=== PATIENT | male | born 1955 | race Two or more races ===

== ENCOUNTER 2024-05-25 15:10 | Inpatient (IN) | payer MEDICARE, MEDICAID ==
[~2024-05-25] VITALS: Ht 182.9 cm; Wt 129.3 kg
[2024-05-25 16:08] LABS: Urine Amorphous Crystal FEW /hpf (None Seen); Urine Bacteria FEW /hpf (None Seen); Urine Blood 3+ /uL (Negative); Urine Clarity Turbid (Clear); Urine Color Colorless (Yellow); Urine Protein, UAD 1+ (Negative); Urine Specific Gravity 1.015 (1.001-1.035); Urine Urobilinogen Normal (Negative); Urine WBC 18 /hpf (0 - 3); Urine pH 7.5 (5.0-9.0)
--- NOTE | 2024-05-25 17:22 | DVH ---
Exam: CT CT AB PEL WO CON-NO ORAL OR IV History: bladder mass Comparison Study: None Technique: Multidetector spiral CT of the abdomen and pelvis was performed from lung bases to pubic symphysis. Imaging was performed without IV contrast. Axial, coronal and sagittal multiplanar reform ats were obtained from the axial data set by the technologist. Radiation dose : Abdomen/Pelvis: CTDIvol 26 mGy, DLP 1610.71 mGy*cm. Findings: Evaluation of solid organs is limited due to lack of intravenous contrast use. Lung Bases: No acute or significant lung base finding. Normal heart size. No pleural or pericardial effusion. Liver: The liver is normal in size. No focal lesions. Gallbladder and biliary Tree: Gallbladder is surgically absent. Spleen: Unremarkable Pancreas: The pancreas is grossly normal in appearance. Adrenal Glands: Unremarkable Kidneys: Bilateral renal cysts. No hydronephrosis or nephrolithiasis. Bladder: Bladder is decompressed with a Jeong catheter and cannot be adequately assessed. Bowel: The stomach is grossly normal in appearance. Small bowel and colon are normal in caliber and d istribution. Normal appendix is visualized in the right lower quadrant without findings of appendici tis. Ascites: Absent Lymphadenopathy: No mesenteric, retroperitoneal or periportal lymphadenopathy. Abdominal wall and Mesentery: Unremarkable. Vasculature: The visualized abdominal aorta is normal in size and caliber. Evaluation of abdominal a nd pelvic vessels is limited due to lack of intravenous contrast. Pelvic Organs: There is a mass in the left pelvis measuring up to 52 by 59 mm. Musculoskeletal: Postsurgical and degenerative changes. IMPRESSION: 1. Left pelvic mass incompletely evaluated on this noncontrast exam. History states bladder mass, cou ld potentially represent an exophytic bladder mass. Could also be arising from the prostate or semin al vesicles. This could be further evaluated with CT or MRI of the pelvis with contrast. Bilateral re nal cysts. Radiation optimization: All CT scans at this facility use at least one of these dose optimization barbara hniques: Automated exposure control mA and/or kV adjustment per patient size (includes targeted exams where dose is matched to clinical indication) or iterative reconstruction. HS:Y
[2024-05-25] MEDS: cefTRIAXone 1GM/50ML D5W 50 ML IV ONE (17:53)
[2024-05-25 18:29] LABS: Basophils # (auto) 0.1 10 ^3/uL (0-0.2); Basophils % (auto) 0.6 % (0.0-2.0); Eosinophils # (auto) 0.2 10 ^3/uL (0-0.8); Eosinophils % (auto) 2.7 % (0.0-7.0); Hematocrit 46.4 % (41.0-53.0); Hemoglobin 15.4 g/dL (13.5-17.5); Lymphocytes # (auto) 2.4 10 ^3/uL (0.4-5.4); Mean Corpuscular Hemoglobin 30.1 pg (28.0-32.0); Mean Corpuscular Hgb Conc. 33.3 g/dL (32.0-36.0); Mean Corpuscular Volume 90.3 fL (80.0-100.0); Monocytes # (auto) 0.7 10 ^3/uL (0-1.3); Neutrophils # (auto) 5.8 10 ^3/uL (1.6-8.6); Neutrophils % (auto) 62.7 % (37.0-80.0); Nucleated Red Blood Cells % 0.1 %; Platelet Count (auto) 289 10^3/uL (140-450); Red Blood Cells 5.14 10^6/uL (4.5-5.90); Red Cell Distribution Width 13.9 % (11.8-14.3); White Blood Cell 9.3 10^3/uL (4.4-10.8)
[2024-05-25 18:50] LABS: Alanine Aminotransferase 29 U/L (7-40); Albumin 4.1 g/dL (3.2-4.8); Alkaline Phosphatase 339 U/L (46-116); Anion Gap 8 (5-15); Aspartate Aminotransferase 24 U/L (13-40); Blood Urea Nitrogen 17 mg/dL (9-23); Calcium 9.4 mg/dL (8.7-10.4); Carbon Dioxide 23 mmol/L (20-31); Chloride 108 mmol/L (98-107); Glucose 103 mg/dL (74-106); Sodium 139 mmol/L (136-145)
[2024-05-25 18:51] LABS: Bilirubin, Total 0.5 mg/dL (0.2-1.0); Total Protein 7.8 g/dL (5.7-8.2)
--- NOTE | 2024-05-25 20:54 | ED.PDOC ---
General HPI Comments HPI: Poor Historian. 69-year-old male presents to the emergency department because he has no medical insurance and no PCP. Patient says he was admitted and discharged on May 20 from an outside facility where he was diagnosed with the following CT scan report: Large lobulated mass in the left posterior pelvis contiguous with the posterior aspect of the prostate gland displacing the rectum to the right side. This could be exophytic prostate neoplasm versus rectal neoplasm with infiltration. They recommended urology and GI consultation further workup and biopsy. Patient states he has no access to a doctor. He is here seeking an evaluation by consulting. Patient has an indwelling Jeong catheter with normal urine color. Past Medcial History: Obstructive uropathy, COPD Past Surgical History: Knee surgery, gallbladder, brain surgery, lumbar surgery REVIEW OF SYSTEMS: CONSTITUTIONAL: Denies acute: fever, diaphoresis, chills, generalized weakness. HEAD: Denies acute: headache, photophobia Eyes: Denies acute: Double vision, vision loss, eye pain, eye discharge. EARS: Denies acute: tinnitus, hearing loss, ear discharge, ear pain, THROAT: Denies acute: sore throat, swelling, difficulty swallowing , pain with swallowing, change in voice. NECK: Denies acute: neck pain, neck swelling, stiff neck. HEART: Denies acute : chest pain, palpitations, LUNGS: Denies acute: SOB, wheezing, cough, hemoptysis ABDOMEN: Denies acute: abdominal pain, Nausea, Vomiting, diarrhea, melena , hematemesis, hematochezia SKIN: Denies acute: rash, redness, lesions, itchiness. EXTREMITIES: Denies acute: calf pain, numbness, tingling, weakness, denies pain in extremity. Denies acute: Low back pain. Neuro: Denies acute: focal neurological deficit, motor or sensory focal neurological deficit, tremors, seizure like activity, confusion, dizziness, change in mental status, loss of bowel or bladder function, cauda equina like symptoms. : Denies acute: hematuria, flank pain, increase in urinary frequency. PSYCH: Denies acute: hallucination, suicidal ideation, homicidal ideation. PHYSICAL EXAM: General: no acute distress, awake and alert. Head: normocephalic, atraumatic. Neck: supple, trachea is midline, no swelling. Throat: Normal phonation. Eyes:, no erythema, no purulent discharge, no proptosis, no icterus. Heart: regular rate, regular rhythm, no significant murmur appreciated. Lungs: no apparent respiratory distress, Able to speak in full sentences. No wheezing, no rhonchi, no crackles. No stridors Clear to auscultation bilaterally. Abdomen: non tender to palpation, non distended, soft, no guarding, no rebound, + bowel sounds. Indwelling Jeong catheter with normal urine color. Neuro: Awake, Alert, oriented to name, self, situation, follows commands GCS=15. Speech is normal. Skin: no petechia, no purpura, no cyanosis, non-pale, not jaundice. Lower extremities: --no - Pitting edema no deformity, no focal swelling, no calf TTP. Makes eye contact. moves all four extremities. Face: no apparent facial droop. No CVA tenderness to percussion bilaterally. Ambulating in the ED independently. Ears: Normal appearing TM b/l, Stroke: finger to nose cerebellar testing is intact. No pronator drift. Symmetrical traffic coordinator muscle strength b/l PERRLA, EOM-I CN 2-12 are grossly intact, Pedal pulses are palpable. No nystagmus. No nuchal rigidity, Kernig's sign, Brudzinski's sign, no meningeal signs. Chief Complaint: Urinary Time Seen by MD: 15:17 Primary Care Provider: none Reviewed notes: Nurses Notes, Allergies Allergies: Coded Allergies: Codeine (Verified Allergy, Unknown, 05/25/24) Information Source: Patient Mode of Arrival: Ambulatory Was a procedure done? Was a procedure done?: No Differential Diagnosis Kidney stone (Female): N/A Urinary Problem (Male): Bladder Outlet, Bladder Obstruction, Epididymitis, Prostatitis, Plelonephritis, Post op Complications, Renal Failure, Urethritis, Urinary Retention, Urolithiasis, UTI X-Ray, Labs, Meds, VS Vital Signs Date Time Temp Pulse Resp B/P (MAP) Pulse Ox O2 Delivery O2 Flow Rate FiO2 05/25/24 18:02 98.2 87 20 100/89 (93) 99 98.2 05/25/24 15:30 98.0 88 19 108/87 (94) 98 Lab Test 05/25/24 20:18 05/25/24 18:20 05/25/24 18:14 11/18/24 16:00 Range/Units Troponin I High Sensitivity 5 7 </=54 ng/L Lactic Acid Level 1.7 0.4-2.0 mmol/L White Blood Count 9.3 4.4-10.8 10^3/uL Red Blood Count 5.14 4.5-5.90 10^6/uL Hemoglobin 15.4 13.5-17.5 g/dL Hematocrit 46.4 41.0-53.0 % Mean Corpuscular Volume 90.3 80.0-100.0 fL Mean Corpuscular Hemoglobin 30.1 28.0-32.0 pg Mean Corpuscular Hemoglobin Concent 33.3 32.0-36.0 g/dL Red Cell Distribution Width 13.9 11.8-14.3 % Platelet Count 289 140-450 10^3/uL Mean Platelet Volume 6.5 L 6.9-10.8 fL Neutrophils (%) (Auto) 62.7 37.0-80.0 % Lymphocytes (%) (Auto) 26.0 10.0-50.0 % Monocytes (%) (Auto) 8.0 0.0-12.0 % Eosinophils (%) (Auto) 2.7 0.0-7.0 % Basophils (%) (Auto) 0.6 0.0-2.0 % Neutrophils # (Auto) 5.8 1.6-8.6 10 ^3/uL Lymphocytes # (Auto) 2.4 0.4-5.4 10 ^3/uL Monocytes # (Auto) 0.7 0-1.3 10 ^3/uL Eosinophils # (Auto) 0.2 0-0.8 10 ^3/uL Basophils # (Auto) 0.1 0-0.2 10 ^3/uL Nucleated Red Blood Cells 0.1 % Sodium Level 139 136-145 mmol/L Potassium Level 4.0 3.5-5.1 mmol/L Chloride Level 108 H 98-107 mmol/L Carbon Dioxide Level 23 20-31 mmol/L Anion Gap 8 5-15 Blood Urea Nitrogen 17 9-23 mg/dL Creatinine 1.00 0.700-1.30 mg/dL Glomerular Filtration Rate Calc 82 >90 mL/min BUN/Creatinine Ratio 17.0 10.0-20.0 Serum Glucose 103 74-106 mg/dL Calcium Level 9.4 8.7-10.4 mg/dL Total Bilirubin 0.5 0.2-1.0 mg/dL Aspartate Amino Transferase (AST) 24 13-40 U/L Alanine Aminotransferase (ALT) 29 7-40 U/L Alkaline Phosphatase 339 H 46-116 U/L Total Protein 7.8 5.7-8.2 g/dL Albumin 4.1 3.2-4.8 g/dL Urine Color Colorless Yellow Urine Clarity Turbid H Clear Urine pH 7.5 5.0-9.0 Urine Specific [place] 1.015 1.001-1.035 Urine Protein 1+ H Negative Urine Ketones Negative Negative Urine Blood 3+ H Negative /uL Urine Nitrite 2+ H Negative Urine Bilirubin Negative Negative Urine Urobilinogen Normal Negative mg/dL Urine Leukocyte Esterase 2+ Negative /uL Urine RBC 595 0 - 3 /hpf Urine WBC 18 0 - 3 /hpf Urine Squamous Epithelial Cells None seen <5 /hpf Urine Amorphous Crystals Few None Seen /hpf Urine Bacteria Few H None Seen /hpf Urine Glucose Normal Normal mg/dL Current Medications Medications (Trade) Dose Ordered Sig/Hung Route Start Time Stop Time Status Last Admin Ceftriaxone Sodium 50 ml @ 100 mls/hr ONCE ONCE IV 05/25/24 17:30 05/25/24 17:59 DC 05/25/24 17:53 [place] [id number] Ph: [phone] DIAGNOSTIC IMAGING Diagnostic Imaging Report : [id number] Signed PATIENT: VENITA SCOTTCCT: [id number] UNIT: [id number] : 1955 LOC: ER ROOM / BED: / AGE / SEX: 69 / M ADM STATUS: REG ER SERVICE [id number] ORDERING PHYSICIAN: ARI TURNER DO PROCEDURE(s): ABPL - CT AB PEL WO CON-NO ORAL OR IV REASON: bladder mass ORDER NUMBER(s): [id number], ACCESSION NUMBER(s): [id number] Exam: CT CT AB PEL WO CON-NO ORAL OR IV History: bladder mass Comparison Study: None Technique: Multidetector spiral CT of the abdomen and pelvis was performed from lung bases to pubic symphysis. Imaging was performed without IV contrast. Axial, coronal and sagittal multiplanar reformats were obtained from the axial data set by the technologist. Radiation dose : Abdomen/Pelvis: CTDIvol 26 mGy, DLP 1610.71 mGy*cm. Findings: Evaluation of solid organs is limited due to lack of intravenous contrast use. Lung Bases: No acute or significant lung base finding. Normal heart size. No pleural or pericardial effusion. Liver: The liver is normal in size. No focal lesions. Gallbladder and biliary Tree: Gallbladder is surgically absent. Spleen: Unremarkable Pancreas: The pancreas is grossly normal in appearance. Adrenal Glands: Unremarkable Kidneys: Bilateral renal cysts. No hydronephrosis or nephrolithiasis. Bladder: Bladder is decompressed with a Jeong catheter and cannot be adequately assessed. Bowel: The stomach is grossly normal in appearance. Small bowel and colon are normal in caliber and distribution. Normal appendix is visualized in the right lower quadrant without findings of appendicitis. Ascites: Absent Lymphadenopathy: No mesenteric, retroperitoneal or periportal lymphadenopathy. Abdominal wall and Mesentery: Unremarkable. Vasculature: The visualized abdominal aorta is normal in size and caliber. Evaluation of abdominal and pelvic vessels is limited due to lack of intravenous contrast. Pelvic Organs: There is a mass in the left pelvis measuring up to 52 by 59 mm. Musculoskeletal: Postsurgical and degenerative changes. IMPRESSION: 1. Left pelvic mass incompletely evaluated on this noncontrast exam. History states bladder mass, could potentially represent an exophytic bladder mass. Could also be arising from the prostate or seminal vesicles. This could be further evaluated with CT or MRI of the pelvis with contrast. Bilateral renal cysts. Radiation optimization: All CT scans at this facility use at least one of these dose optimization techniques: Automated exposure control mA and/or kV adjustment per patient size (includes targeted exams where dose is matched to clinical indication) or iterative reconstruction. HS:Y ATED BY: COLTON JORDAN MD DICTATED DATE/TIME: 05/25/241718 SIGNED BY: COLTON JORDAN MD SIGNED DATE/TIME: 05/25/241718 CC: Time of 1ST Reevaluation: 20:53 Reevaluation 1ST: Unchanged Patient Education/Counseling: Diagnosis, Treatment Family Education/Counseling: No Family Present Comments Patient presented with the above HPI.---urinary complaint---workup was initiated. patient was found with the above mentioned diagnosis. Patient was given Rocephin IV Patient ED course and VS have been stabilized. Patient has been reassessed in the ED and remained in a stable condition. Pertinent incidental findings were discussed with the patient and/or family. Patient/family voices understanding and is agreeable with plan. Patient has been observed in the ED adequate length of time to insure improvement/stability. patient was admitted to the medicine team for further evaluation and treatment of their presentation. Patient will need Urology consultation. He has no access to any medical care outside the hospital. All the reports of any imaging studies that were ordered by myself were reviewed by myself. Departure 1 Departure Time of Disposition: 20:53 Impression: Primary Impression: Pelvic mass in male Additional Impression: UTI (urinary tract infection) Disposition: ADMITTED INPATIENT Admit to: Tele Condition: Guarded Discharged With: Self Critical Care Note Critical Care Time?: No ARI TURNER DO May 25, 2024 20:54
[2024-05-25] MEDS: IOHEXOL 300 MG/ML 100ML BOTTLE IJ ONE (21:45)
--- NOTE | 2024-05-25 22:38 | DVH ---
Exam: CT CT AB PEL WITH IV CON ONLY History: pelvic mass Comparison Study: CT CT AB PEL WO CON-NO ORAL OR IV on DOS: 05/25/24 Technique: Multidetector spiral CT of the abdomen was performed from lung bases to pubic symphysis. Imaging was performed without IV contrast. Axial, coronal and sagittal multiplanar reformats were ob tained from the axial data set by the technologist. Radiation Dose : 1. Abdomen/Pelvis: CTDIvol 23 mGy, DLP 2005.58 mGy*cm. Findings: Evaluation of solid organs is limited due to lack of intravenous contrast use. Lung Bases: No acute or significant lung base finding. Normal heart size. No pleural or pericardial effusion. Liver: The liver is normal in size. No focal lesions. Gallbladder and Biliary Tree: Gallbladder is surgically absent. Spleen: Unremarkable Pancreas: The pancreas is grossly normal in appearance. Adrenal Glands: Unremarkable Kidneys: Kidneys are grossly normal without calculi or hydronephrosis. Bladder: Grossly unremarkable for degree of distention. Bowel: Postsurgical changes are seen in the stomach. Small bowel and colon are normal in caliber and distribution. The appendix is not visualized; however, no secondary findings of acute appendicitis i dentified. Ascites: Absent Lymphadenopathy: No mesenteric, retroperitoneal or periportal lymphadenopathy. Abdominal Wall and Mesentery: Unremarkable. Vasculature: The visualized abdominal aorta is normal in size and caliber. Evaluation of abdominal a nd pelvic vessels is limited due to lack of intravenous contrast. Pelvic Organs: Urinary bladder is collapsed around a Jeong catheter. Hypoattenuated pelvic mass is se en in the lower midline pelvis measuring 6.2 x 4.7 cm. Mass appears to abut the posterior wall of the prostate as well as the posterior wall of the urinary bladder. Musculoskeletal: No aggressive focal bony lesions, acute fractures or dislocation. Lumbar fixation hardy rdware seen at L4-L5. IMPRESSION: 1. Hypoattenuated mass is seen in the left lower left midline pelvis measuring up to 6.2 cm which is adjacent to the posterior jaimes of the prostate and urinary bladder. 2. Radiation optimization: All CT scans at this facility use at least one of these dose optimization techniques: automated exposure control mA and/or kV adjustment per patient size (includes targeted e xams where dose is matched to clinical indication) or iterative reconstruction.
[2024-05-26] VITALS (8 sets, daily range): BP systolic 109–152; BP diastolic 72–82; PULSE 70–81; RESP 16–20; TEMP 97.8–99; O2SAT 95–97
[2024-05-26] MEDS: ONDANSETRON HCL 4 MG/2 ML VIAL IV PRN (01:02)
[2024-05-26] MEDS: TEMAZEPAM 15 MG CAP PO PRN (01:02)
--- NOTE | 2024-05-26 02:01 | DVHHP2 ---
History of Present Illness Reason for Visit: Abdominal pain History of Present Illness 69-year-old male presents for evaluation of abdominal pain. Patient reports being admitted to a hospital up in [facility] last week. He states he was unable to urinate for four days he was discharged with a Jeong catheter was advised to follow up with a urologist in the area for a possible bladder mass. He reports lower abdominal pain with associated nausea. Blood in his urine. Denies fever or chills. Other acute complaints reported. Past Medical History COPD Past Surgical History Cholecystectomy, brain surgery lumbar surgery Family History Noncontributory Smoke: No ALCOHOL: none Drugs: None Lives: with Family Review of Systems Review of Systems Review of systems are currently negative otherwise addressed HPI Allergies: Coded Allergies: Codeine (Verified Allergy, Unknown, 05/25/24) Medications Current Medications Medications Dose Ordered Sig/Hung Route Start Time Stop Time Status Last Admin Dose Admin Ceftriaxone Sodium 50 ml @ 100 mls/hr DAILY@09 IV 05/26/24 09:00 Temazepam 15 mg QHSP PRN PO 05/25/24 21:30 05/26/24 01:02 15 MG Ondansetron HCl 4 mg Q4HP PRN IV 05/25/24 21:30 05/26/24 01:02 4 MG Acetaminophen 650 mg Q6HP PRN PO 05/25/24 21:30 Exam Vital Signs Vital Signs Date Time Temp Pulse Resp B/P (MAP) Pulse Ox O2 Delivery O2 Flow Rate FiO2 05/26/24 01:10 76 20 97 Room Air 05/26/24 01:10 97.9 127/77 (94) 97.9 Exam Gen: 69-year-old male mild distress Skin: Warm, dry, normal color and texture, no rash. HEENT: Normocephalic atraumatic, mucous membranes moist and pink. Neck: Cervical and supraclavicular nodes normal without enlargement, trachea is midline, thyroid gland is normal without masses. Pulmonary: Clear to auscultation and percussion bilaterally. Cardiac: Regular rate and rhythm. No murmur Abdomen: Soft, nontender, nondistended, bowel sounds present all 4 quadrants, no guarding, no rigidity, no organomegaly. Extremities: No cyanosis, clubbing, no edema Neuro: Cranial nerves II through XII grossly intact, normal affect and speech, no focal motor deficits. Labs/Xrays ORDERING PHYSICIAN: TORRES,LORNA AGACNP PROCEDURE(s): ABPLIV - CT AB PEL WITH IV CON ONLY REASON: pelvic mass ORDER NUMBER(s): [id number], ACCESSION NUMBER(s): [id number] Exam: CT CT AB PEL WITH IV CON ONLY History: pelvic mass Comparison Study: CT CT AB PEL WO CON-NO ORAL OR IV on DOS: 05/25/24 Technique: Multidetector spiral CT of the abdomen was performed from lung bases to pubic symphysis. Imaging was performed without IV contrast. Axial, coronal and sagittal multiplanar reformats were obtained from the axial data set by the technologist. Radiation Dose : 1. Abdomen/Pelvis: CTDIvol 23 mGy, DLP 2005.58 mGy*cm. Findings: Evaluation of solid organs is limited due to lack of intravenous contrast use. Lung Bases: No acute or significant lung base finding. Normal heart size. No pleural or pericardial effusion. Liver: The liver is normal in size. No focal lesions. Gallbladder and Biliary Tree: Gallbladder is surgically absent. Spleen: Unremarkable Pancreas: The pancreas is grossly normal in appearance. Adrenal Glands: Unremarkable Kidneys: Kidneys are grossly normal without calculi or hydronephrosis. Bladder: Grossly unremarkable for degree of distention. Bowel: Postsurgical changes are seen in the stomach. Small bowel and colon are normal in caliber and distribution. The appendix is not visualized; however, no secondary findings of acute appendicitis identified. Ascites: Absent Lymphadenopathy: No mesenteric, retroperitoneal or periportal lymphadenopathy. Abdominal Wall and Mesentery: Unremarkable. Vasculature: The visualized abdominal aorta is normal in size and caliber. Evaluation of abdominal and pelvic vessels is limited due to lack of intravenous contrast. Pelvic Organs: Urinary bladder is collapsed around a Jeong catheter. Hypoattenuated pelvic mass is seen in the lower midline pelvis measuring 6.2 x 4.7 cm. Mass appears to abut the posterior wall of the prostate as well as the posterior wall of the urinary bladder. Musculoskeletal: No aggressive focal bony lesions, acute fractures or dislocation. Lumbar fixation hardware seen at L4-L5. IMPRESSION: 1. Hypoattenuated mass is seen in the left lower left midline pelvis measuring up to 6.2 cm which is adjacent to the posterior jaimes of the prostate and urinary bladder. 2. Radiation optimization: All CT scans at this facility use at least one of these dose optimization techniques: automated exposure control mA and/or kV adjustment per patient size (includes targeted exams where dose is matched to clinical indication) or iterative reconstruction. Labs Test 05/25/24 20:18 05/25/24 18:20 05/25/24 18:14 05/25/24 16:00 Range/Units Troponin I High Sensitivity 5 </=54 ng/L Lactic Acid Level 1.7 0.4-2.0 mmol/L White Blood Count 9.3 4.4-10.8 10^3/uL Red Blood Count 5.14 4.5-5.90 10^6/uL Hemoglobin 15.4 13.5-17.5 g/dL Hematocrit 46.4 41.0-53.0 % Mean Corpuscular Volume 90.3 80.0-100.0 fL Mean Corpuscular Hemoglobin 30.1 28.0-32.0 pg Mean Corpuscular Hemoglobin Concent 33.3 32.0-36.0 g/dL Red Cell Distribution Width 13.9 11.8-14.3 % Platelet Count 289 140-450 10^3/uL Mean Platelet Volume 6.5 L 6.9-10.8 fL Neutrophils (%) (Auto) 62.7 37.0-80.0 % Lymphocytes (%) (Auto) 26.0 10.0-50.0 % Monocytes (%) (Auto) 8.0 0.0-12.0 % Eosinophils (%) (Auto) 2.7 0.0-7.0 % Basophils (%) (Auto) 0.6 0.0-2.0 % Neutrophils # (Auto) 5.8 1.6-8.6 10 ^3/uL Lymphocytes # (Auto) 2.4 0.4-5.4 10 ^3/uL Monocytes # (Auto) 0.7 0-1.3 10 ^3/uL Eosinophils # (Auto) 0.2 0-0.8 10 ^3/uL Basophils # (Auto) 0.1 0-0.2 10 ^3/uL Nucleated Red Blood Cells 0.1 % Sodium Level 139 136-145 mmol/L Potassium Level 4.0 3.5-5.1 mmol/L Chloride Level 108 H 98-107 mmol/L Carbon Dioxide Level 23 20-31 mmol/L Anion Gap 8 5-15 Blood Urea Nitrogen 17 9-23 mg/dL Creatinine 1.00 0.700-1.30 mg/dL Glomerular Filtration Rate Calc 82 >90 mL/min BUN/Creatinine Ratio 17.0 10.0-20.0 Serum Glucose 103 74-106 mg/dL Calcium Level 9.4 8.7-10.4 mg/dL Total Bilirubin 0.5 0.2-1.0 mg/dL Aspartate Amino Transferase (AST) 24 13-40 U/L Alanine Aminotransferase (ALT) 29 7-40 U/L Alkaline Phosphatase 339 H 46-116 U/L Total Protein 7.8 5.7-8.2 g/dL Albumin 4.1 3.2-4.8 g/dL Urine Color Colorless Yellow Urine Clarity Turbid H Clear Urine pH 7.5 5.0-9.0 Urine Specific [place] 1.015 1.001-1.035 Urine Protein 1+ H Negative Urine Ketones Negative Negative Urine Blood 3+ H Negative /uL Urine Nitrite 2+ H Negative Urine Bilirubin Negative Negative Urine Urobilinogen Normal Negative mg/dL Urine Leukocyte Esterase 2+ Negative /uL Urine RBC 595 0 - 3 /hpf Urine WBC 18 0 - 3 /hpf Urine Squamous Epithelial Cells None seen <5 /hpf Urine Amorphous Crystals Few None Seen /hpf Urine Bacteria Few H None Seen /hpf Urine Glucose Normal Normal mg/dL Assessment/Plan Assessment/Plan Assessment Pelvic mass Urinary tract infection Plan Admit the patient to [facility] to the hospitalist Urology consultation Rocephin Pain management Continue treatment per orders. Plan discussed with: [facility] Procedure Category Date Status Time Ct Ab Pel With Iv Con CT 05/25/24 Resulted Only 21:27 * Urology Consult CONS 05/25/24 Transmitted 21:27 Regular Diet DIET 05/26/24 Transmitted Breakfast Ceftriaxone 1gm/50ml PHA 05/26/24 In Process D5w (Rocephin) 09:00 Admit ADMIT 05/25/24 Transmitted 21:27 Temazepam (Restoril) PHA 05/25/24 In Process 21:30 Ondansetron Hcl PHA 05/25/24 In Process (Zofran) 21:30 Complete Blood Count LAB 05/26/24 Logged 04:00 Comprehensive LAB 05/26/24 Logged Metabolic Panel 04:00 Condition: Stable SARAH 05/25/24 In Process 21:27 Acetaminophen Tablet PHA 05/25/24 In Process (Tylenol Tablet) 21:30 Bedrest With Bathroom SARAH 05/25/24 In Process Privileg 21:27 Date of Service: May 25, 2024 Billing Provider: CIRO TORRES Common Visit Codes: [id number] INP/OBS CARE (MOD) CIRO TORRES May 26, 2024 02:01
[2024-05-26] MEDS: ACETAMINOPHEN 325 MG TAB PO PRN (03:52)
[2024-05-26] MEDS ORDERED: FAMO20IN2 IV (04:52)
[2024-05-26] MEDS: cefTRIAXone 1GM/50ML D5W 50 ML IV SCH (09:03)
[2024-05-26 09:53] LABS: Basophils # (auto) 0 10 ^3/uL (0-0.2); Basophils % (auto) 0.7 % (0.0-2.0); Eosinophils # (auto) 0.2 10 ^3/uL (0-0.8); Eosinophils % (auto) 2.7 % (0.0-7.0); Hematocrit 41.2 % (41.0-53.0); Hemoglobin 13.9 g/dL (13.5-17.5); Lymphocytes # (auto) 1.7 10 ^3/uL (0.4-5.4); Lymphocytes % (auto) 25.8 % (10.0-50.0); Mean Corpuscular Hemoglobin 30.2 pg (28.0-32.0); Mean Corpuscular Hgb Conc. 33.8 g/dL (32.0-36.0); Mean Corpuscular Volume 89.4 fL (80.0-100.0); Monocytes # (auto) 0.6 10 ^3/uL (0-1.3); Neutrophils # (auto) 4.1 10 ^3/uL (1.6-8.6); Neutrophils % (auto) 61.8 % (37.0-80.0); Nucleated Red Blood Cells % 0.1 %; Platelet Count (auto) 260 10^3/uL (140-450); Red Blood Cells 4.61 10^6/uL (4.5-5.90); Red Cell Distribution Width 13.6 % (11.8-14.3); White Blood Cell 6.7 10^3/uL (4.4-10.8)
[2024-05-26 10:14] LABS: Alanine Aminotransferase 22 U/L (7-40); Albumin 3.5 g/dL (3.2-4.8); Alkaline Phosphatase 287 U/L (46-116); Anion Gap 7 (5-15); Aspartate Aminotransferase 19 U/L (13-40); BUN/Creatinine Ratio 19.6 (10.0-20.0); Bilirubin, Total 0.6 mg/dL (0.2-1.0); Blood Urea Nitrogen 19 mg/dL (9-23); Calcium 8.8 mg/dL (8.7-10.4); Carbon Dioxide 24 mmol/L (20-31); Chloride 108 mmol/L (98-107); Glucose 118 mg/dL (74-106); Potassium 3.7 mmol/L (3.5-5.1); Sodium 139 mmol/L (136-145); Total Protein 6.5 g/dL (5.7-8.2)
--- NOTE | 2024-05-26 11:25 | DVHINCON2 ---
Date of service: May 26, 2024 Referring Physician hospitalist Reason for Consultation pelvic mass History of Present Illness History Source: Patient, RN Notes, MD Notes Exam Limitations: No limitations HPI 69 yo male presented for evaluation of pelvic mass noted on CT done at outside facility last week. He was having urinary retention and had santa placed in a [facility]. "Large lobulated mass in the left posterior pelvis contiguous with the posterior aspect of the prostate gland displacing the rectum to the right side. This could be exophytic prostate neoplasm versus rectal neoplasm with infiltration." Patient states he has no access to a doctor.. Patient has an indwelling Santa catheter with normal urine color. Past Medical History: Obstructive uropathy, COPD Past Surgical History: Knee surgery, gallbladder, brain surgery, lumbar surgery Home Meds Reported Medications Famotidine In Nacl (Famotidine) 20 Mg/50 M Inj, 20 MG IV BID, INJ 05/26/24 Past Medical History Patient Family History: Asthma G8 BROTHER Diabetes mellitus G8 FATHER FH: COPD (chronic obstructive pulmonary disease) G8 MOTHER FH: asthma FH: brain tumor G8 BROTHER FH: congestive heart failure G8 FATHER FH: diabetes mellitus FH: emphysema G8 MOTHER FH: heart attack G8 MOTHER FH: smoking G8 MOTHER H&P Exam Vital Signs Vital Signs Date Time Temp Pulse Resp B/P (MAP) Pulse Ox O2 Delivery O2 Flow Rate FiO2 05/26/24 09:00 97.8 81 20 135/82 (99) 96 97.8 05/26/24 01:10 Room Air General Appeara: Well developed, Well nourished, Normal Appearance Neuro/Mental St: Alert, Oriented Appearance: Appropriate appearance, Appropriate insight Eye contact/ Speech: Cooperative, Good eye contact, Normal speech Skin Exam: Normal inspection, Normal color, Warm/dry Labs/Xrays [place] [id number] Ph: [phone] DIAGNOSTIC IMAGING Diagnostic Imaging Report : [id number] Signed PATIENT: VENITA SCOTTCCT: [id number] UNIT: [id number] : 1955 LOC: OVERFLOW ROOM / BED: [address] [place] [address] / AGE / SEX: 69 / M ADM STATUS: ADM IN SERVICE 26 ORDERING PHYSICIAN: CIRO TORRES PROCEDURE(s): ABPLIV - CT AB PEL WITH IV CON ONLY REASON: pelvic mass ORDER NUMBER(s): [id number], ACCESSION NUMBER(s): [id number] Exam: CT CT AB PEL WITH IV CON ONLY History: pelvic mass Comparison Study: CT CT AB PEL WO CON-NO ORAL OR IV on DOS: 05/25/24 Technique: Multidetector spiral CT of the abdomen was performed from lung bases to pubic symphysis. Imaging was performed without IV contrast. Axial, coronal and sagittal multiplanar reformats were obtained from the axial data set by the technologist. Radiation Dose : 1. Abdomen/Pelvis: CTDIvol 23 mGy, DLP 2005.58 mGy*cm. Findings: Evaluation of solid organs is limited due to lack of intravenous contrast use. Lung Bases: No acute or significant lung base finding. Normal heart size. No pleural or pericardial effusion. Liver: The liver is normal in size. No focal lesions. Gallbladder and Biliary Tree: Gallbladder is surgically absent. Spleen: Unremarkable Pancreas: The pancreas is grossly normal in appearance. Adrenal Glands: Unremarkable Kidneys: Kidneys are grossly normal without calculi or hydronephrosis. Bladder: Grossly unremarkable for degree of distention. Bowel: Postsurgical changes are seen in the stomach. Small bowel and colon are normal in caliber and distribution. The appendix is not visualized; however, no secondary findings of acute appendicitis identified. Ascites: Absent Lymphadenopathy: No mesenteric, retroperitoneal or periportal lymphadenopathy. Abdominal Wall and Mesentery: Unremarkable. Vasculature: The visualized abdominal aorta is normal in size and caliber. Evaluation of abdominal and pelvic vessels is limited due to lack of intravenous contrast. Pelvic Organs: Urinary bladder is collapsed around a Santa catheter. Hypoattenuated pelvic mass is seen in the lower midline pelvis measuring 6.2 x 4.7 cm. Mass appears to abut the posterior wall of the prostate as well as the posterior wall of the urinary bladder. Musculoskeletal: No aggressive focal bony lesions, acute fractures or dislocation. Lumbar fixation hardware seen at L4-L5. IMPRESSION: 1. Hypoattenuated mass is seen in the left lower left midline pelvis measuring up to 6.2 cm which is adjacent to the posterior jaimes of the prostate and urinary bladder. 2. Radiation optimization: All CT scans at this facility use at least one of these dose optimization techniques: automated exposure control mA and/or kV adjustment per patient size (includes targeted exams where dose is matched to clinical indication) or iterative reconstruction. ATED BY: AUBREY ESCOBEDO MD DICTATED DATE/TIME: 05/25/242235 SIGNED BY: AUBREY ESCOBEDO MD SIGNED DATE/TIME: 05/25/242235 CC: Labs Test 05/26/24 09:39 05/25/24 20:18 05/25/24 18:20 05/25/24 16:00 Range/Units White Blood Count 6.7 # 4.4-10.8 10^3/uL Red Blood Count 4.61 4.5-5.90 10^6/uL Hemoglobin 13.9 13.5-17.5 g/dL Hematocrit 41.2 # 41.0-53.0 % Mean Corpuscular Volume 89.4 80.0-100.0 fL Mean Corpuscular Hemoglobin 30.2 28.0-32.0 pg Mean Corpuscular Hemoglobin Concent 33.8 32.0-36.0 g/dL Red Cell Distribution Width 13.6 11.8-14.3 % Platelet Count 260 140-450 10^3/uL Mean Platelet Volume 6.5 L 6.9-10.8 fL Neutrophils (%) (Auto) 61.8 37.0-80.0 % Lymphocytes (%) (Auto) 25.8 10.0-50.0 % Monocytes (%) (Auto) 9.0 0.0-12.0 % Eosinophils (%) (Auto) 2.7 0.0-7.0 % Basophils (%) (Auto) 0.7 0.0-2.0 % Neutrophils # (Auto) 4.1 1.6-8.6 10 ^3/uL Lymphocytes # (Auto) 1.7 0.4-5.4 10 ^3/uL Monocytes # (Auto) 0.6 0-1.3 10 ^3/uL Eosinophils # (Auto) 0.2 0-0.8 10 ^3/uL Basophils # (Auto) 0 0-0.2 10 ^3/uL Nucleated Red Blood Cells 0.1 % Sodium Level 139 136-145 mmol/L Potassium Level 3.7 3.5-5.1 mmol/L Chloride Level 108 H 98-107 mmol/L Carbon Dioxide Level 24 20-31 mmol/L Anion Gap 7 5-15 Blood Urea Nitrogen 19 9-23 mg/dL Creatinine 0.97 0.700-1.30 mg/dL Glomerular Filtration Rate Calc 86 >90 mL/min BUN/Creatinine Ratio 19.6 10.0-20.0 Serum Glucose 118 H 74-106 mg/dL Calcium Level 8.8 8.7-10.4 mg/dL Total Bilirubin 0.6 0.2-1.0 mg/dL Aspartate Amino Transferase (AST) 19 13-40 U/L Alanine Aminotransferase (ALT) 22 7-40 U/L Alkaline Phosphatase 287 H 46-116 U/L Total Protein 6.5 5.7-8.2 g/dL Albumin 3.5 3.2-4.8 g/dL Troponin I High Sensitivity 5 </=54 ng/L Lactic Acid Level 1.7 0.4-2.0 mmol/L Urine Color Colorless Yellow Urine Clarity Turbid H Clear Urine pH 7.5 5.0-9.0 Urine Specific [place] 1.015 1.001-1.035 Urine Protein 1+ H Negative Urine Ketones Negative Negative Urine Blood 3+ H Negative /uL Urine Nitrite 2+ H Negative Urine Bilirubin Negative Negative Urine Urobilinogen Normal Negative mg/dL Urine Leukocyte Esterase 2+ Negative /uL Urine RBC 595 0 - 3 /hpf Urine WBC 18 0 - 3 /hpf Urine Squamous Epithelial Cells None seen <5 /hpf Urine Amorphous Crystals Few None Seen /hpf Urine Bacteria Few H None Seen /hpf Urine Glucose Normal Normal mg/dL Assessment/Plan Problem List: (1) UTI (urinary tract infection) (2) Pelvic mass in male Plan no acute urologic intervention indicated. ok to send home with santa needs to follow up with urology at [facility] due to insurance case reviewed in its entirety with Dr. Kevin Castaneda signing off Plan discussed with: Patient, Other DONOVAN TIWARI NP May 26, 2024 11:25
--- NOTE | 2024-05-26 11:36 | DVHPN2 ---
Subjective The patient is seen and examined at bedside. Complain of low abdominal pain. Reviewed: Care Plan, H&P, Labs, Medications, Previous Orders, Radiology Changes from previous H/P or p: No Changes Objective Vitals Vital Signs Date Time Temp Pulse Resp B/P (MAP) Pulse Ox O2 Delivery O2 Flow Rate FiO2 05/26/24 09:00 97.8 81 20 135/82 (99) 96 97.8 05/26/24 08:30 Room Air* 0 21 Intake/Output Intake and Output 05/26/24 07:00 Intake Total 0 ml Output Total 800 ml Balance -800 ml Intake Oral 0 ml Output Urine Total 800 ml General Appearance: Alert, Oriented X3, Cooperative, No acute distress HEENT: Atraumatic, PERRLA, EOMI, Mucous membr. moist/pink Neck: Supple Lungs: Clear to auscultation, Normal air movement Cardiovascular: Regular rate, Normal S1, Normal S2, No murmurs, Gallops Abdomen: Normal bowel sounds, Soft, No tenderness Neuro: Cranial nerves 3-12 NL Psych/Mental Status: Mental status NL Medications Current Medications Medications Dose Ordered Sig/Hung Route Start Time Stop Time Status Last Admin Dose Admin Ceftriaxone Sodium 50 ml @ 100 mls/hr DAILY@09 IV 05/26/24 09:00 05/26/24 09:03 100 MLS/HR Temazepam 15 mg QHSP PRN PO 05/25/24 21:30 05/26/24 01:02 15 MG Ondansetron HCl 4 mg Q4HP PRN IV 05/25/24 21:30 05/26/24 09:30 4 MG Acetaminophen 650 mg Q6HP PRN PO 05/25/24 21:30 05/26/24 03:52 650 MG Laboratory Results Laboratory Tests 05/26/24 09:39 Chemistry Test 05/25/24 18:14 05/26/24 09:39 Albumin 4.1 g/dL (3.2-4.8) 3.5 g/dL (3.2-4.8) Calcium Level 9.4 mg/dL (8.7-10.4) 8.8 mg/dL (8.7-10.4) Total Protein 7.8 g/dL (5.7-8.2) 6.5 g/dL (5.7-8.2) LFT Test 05/25/24 18:14 05/26/24 09:39 Alanine Aminotransferase (ALT) 29 U/L (7-40) 22 U/L (7-40) Alkaline Phosphatase 339 U/L (46-116) H 287 U/L (46-116) H Aspartate Amino Transferase (AST) 24 U/L (13-40) 19 U/L (13-40) Total Bilirubin 0.5 mg/dL (0.2-1.0) 0.6 mg/dL (0.2-1.0) Urinalysis Test 05/25/24 16:00 Urine Color Colorless (Yellow) Urine Clarity Turbid (Clear) H Urine pH 7.5 (5.0-9.0) Urine Specific [place] 1.015 (1.001-1.035) Urine Protein 1+ (Negative) H Urine Ketones Negative (Negative) Urine Blood 3+ /uL (Negative) H Urine Nitrite 2+ (Negative) H Urine Bilirubin Negative (Negative) Urine Urobilinogen Normal mg/dL (Negative) Urine Leukocyte Esterase 2+ /uL (Negative) Urine RBC 595 /hpf (0 - 3) Urine WBC 18 /hpf (0 - 3) Urine Squamous Epithelial Cells None seen /hpf (<5) Urine Amorphous Crystals Few /hpf (None Seen) Urine Bacteria Few /hpf (None Seen) H Urine Glucose Normal mg/dL (Normal) Labs and/or images reviewed: Labs reviewed by me Assessment/Plan Assessment/Plan Pelvic mass Urinary tract infection Abdominal pain due to above Plan: Continuing current management. Continuing with IV antibiotic Rocephin. Waiting for urologist to see the patient. Plan discussed with: Patient Date of Service: May 26, 2024 Billing Provider: NIGEL DOUGLAS MD Common Visit Codes: [id number] INP/OBS CARE(HIGH) NIGEL DOUGLAS MD May 26, 2024 11:36
[2024-05-26] MEDS: KETOROLAC TROMETH 30 MG/ML 1ML VIAL IV ONE (21:00)
[2024-05-27 00:19] VITALS: BP 117/76; PULSE 78; RESP 17; TEMP 98.6; O2SAT 97
[2024-05-27 05:20] VITALS: BP 116/85; PULSE 95; RESP 18; TEMP 98.5; O2SAT 97
[2024-05-27 08:05] VITALS: PULSE 68; RESP 17; O2SAT 95
[2024-05-27 09:00] VITALS: BP 108/61; PULSE 68; RESP 17; TEMP 98.3; O2SAT 95
[2024-05-27] MEDS: traMADol HCL 50 MG TAB PO PRN (10:57)
--- NOTE | 2024-05-27 11:32 | DVHPN2 ---
Objective Vitals Vital Signs Date Time Temp Pulse Resp B/P (MAP) Pulse Ox O2 Delivery O2 Flow Rate FiO2 05/27/24 09:00 98.3 68 17 108/61 (77) 95 98.3 05/26/24 20:00 Room Air* 0 21 Intake/Output Intake and Output 05/27/24 07:00 Intake Total 1947 ml Output Total 1725 ml Balance 222 ml Intake Oral 1897 ml IV Total 50 ml Output Urine Total 1725 ml # Bowel Movements 1 Medications Current Medications Medications Dose Ordered Sig/Hung Route Start Time Stop Time Status Last Admin Dose Admin Ceftriaxone Sodium 50 ml @ 100 mls/hr DAILY@09 IV 05/26/24 09:00 05/27/24 08:05 100 MLS/HR Temazepam 15 mg QHSP PRN PO 05/25/24 21:30 05/26/24 21:50 15 MG Ondansetron HCl 4 mg Q4HP PRN IV 05/25/24 21:30 05/27/24 08:35 4 MG Acetaminophen 650 mg Q6HP PRN PO 05/25/24 21:30 05/26/24 03:52 650 MG Tramadol HCl 50 mg Q4HP PRN PO 05/27/24 10:15 05/27/24 10:57 50 MG Laboratory Results Laboratory Tests 05/26/24 09:39 Urinalysis Test 05/25/24 16:00 Urine Color Colorless (Yellow) Urine Clarity Turbid (Clear) H Urine pH 7.5 (5.0-9.0) Urine Specific [place] 1.015 (1.001-1.035) Urine Protein 1+ (Negative) H Urine Ketones Negative (Negative) Urine Blood 3+ /uL (Negative) H Urine Nitrite 2+ (Negative) H Urine Bilirubin Negative (Negative) Urine Urobilinogen Normal mg/dL (Negative) Urine Leukocyte Esterase 2+ /uL (Negative) Urine RBC 595 /hpf (0 - 3) Urine WBC 18 /hpf (0 - 3) Urine Squamous Epithelial Cells None seen /hpf (<5) Urine Amorphous Crystals Few /hpf (None Seen) Urine Bacteria Few /hpf (None Seen) H Urine Glucose Normal mg/dL (Normal) Assessment/Plan My Orders Orders - NIGEL DOUGLAS MD Procedure Category Date Status Time Tramadol Hcl (Ultram) PHA 05/27/24 In Process 10:15 NIGEL DOUGLAS MD May 27, 2024 11:32
[2024-05-27] MEDS ORDERED: TAMS-35 PO (11:50)
[2024-05-27] MEDS ORDERED: LEVO500T91 PO (11:50)
[2024-05-27] MEDS ORDERED: TRAM50TA2 PO (11:50)
--- NOTE | 2024-05-27 11:56 | DVHDS2 ---
Discharge Summary Date of Admission May 25, 2024 at 21:27 Date of Discharge: May 27, 2024 Admitting Diagnosis Pelvic mass Urinary tract infection Abdominal pain Labs/Diagnostic Data: Laboratory Results Test 05/26/24 09:39 05/25/24 20:18 05/25/24 18:20 05/25/24 16:00 White Blood Count 6.7 10^3/uL (4.4-10.8) Red Blood Count 4.61 10^6/uL (4.5-5.90) Hemoglobin 13.9 g/dL (13.5-17.5) Hematocrit 41.2 % (41.0-53.0) Mean Corpuscular Volume 89.4 fL (80.0-100.0) Mean Corpuscular Hemoglobin 30.2 pg (28.0-32.0) Mean Corpuscular Hemoglobin Concent 33.8 g/dL (32.0-36.0) Red Cell Distribution Width 13.6 % (11.8-14.3) Platelet Count 260 10^3/uL (140-450) Mean Platelet Volume 6.5 fL (6.9-10.8) Neutrophils (%) (Auto) 61.8 % (37.0-80.0) Lymphocytes (%) (Auto) 25.8 % (10.0-50.0) Monocytes (%) (Auto) 9.0 % (0.0-12.0) Eosinophils (%) (Auto) 2.7 % (0.0-7.0) Basophils (%) (Auto) 0.7 % (0.0-2.0) Neutrophils # (Auto) 4.1 10 ^3/uL (1.6-8.6) Lymphocytes # (Auto) 1.7 10 ^3/uL (0.4-5.4) Monocytes # (Auto) 0.6 10 ^3/uL (0-1.3) Eosinophils # (Auto) 0.2 10 ^3/uL (0-0.8) Basophils # (Auto) 0 10 ^3/uL (0-0.2) Nucleated Red Blood Cells 0.1 % Sodium Level 139 mmol/L (136-145) Potassium Level 3.7 mmol/L (3.5-5.1) Chloride Level 108 mmol/L (98-107) Carbon Dioxide Level 24 mmol/L (20-31) Anion Gap 7 (5-15) Blood Urea Nitrogen 19 mg/dL (9-23) Creatinine 0.97 mg/dL (0.700-1.30) Glomerular Filtration Rate Calc 86 mL/min (>90) BUN/Creatinine Ratio 19.6 (10.0-20.0) Serum Glucose 118 mg/dL (74-106) Calcium Level 8.8 mg/dL (8.7-10.4) Total Bilirubin 0.6 mg/dL (0.2-1.0) Aspartate Amino Transferase (AST) 19 U/L (13-40) Alanine Aminotransferase (ALT) 22 U/L (7-40) Alkaline Phosphatase 287 U/L (46-116) Total Protein 6.5 g/dL (5.7-8.2) Albumin 3.5 g/dL (3.2-4.8) Troponin I High Sensitivity 5 ng/L (</=54) Lactic Acid Level 1.7 mmol/L (0.4-2.0) Urine Color Colorless (Yellow) Urine Clarity Turbid (Clear) Urine pH 7.5 (5.0-9.0) Urine Specific [place] 1.015 (1.001-1.035) Urine Protein 1+ (Negative) Urine Ketones Negative (Negative) Urine Blood 3+ /uL (Negative) Urine Nitrite 2+ (Negative) Urine Bilirubin Negative (Negative) Urine Urobilinogen Normal mg/dL (Negative) Urine Leukocyte Esterase 2+ /uL (Negative) Urine RBC 595 /hpf (0 - 3) Urine WBC 18 /hpf (0 - 3) Urine Squamous Epithelial Cells None seen /hpf (<5) Urine Amorphous Crystals Few /hpf (None Seen) Urine Bacteria Few /hpf (None Seen) Urine Glucose Normal mg/dL (Normal) Other Laboratory Tests 05/26/24 09:39 Brief Hx & Hospital Course: This is 69 years old male come to emergency department because severe abdominal pain. The patient apparently was admitted to hospital up in [facility] last week. He apparently unable to urinate for four day. Per hospital records from the [facility] area, patient's CT scan showed: Large lobulated mass in the left posterior pelvis contiguous with the posterior aspect of the prostate gland displacing the rectum to the right side. This could be exophytic prostate neoplasm versus rectal neoplasm with infiltration. He was discharged with a Santa cath in advised to follow up with urologist because of possible bladder mass. He does have low abdominal pain with associated nausea but no vomiting. No fever or chills. The patient was admitted. CT scan abdomen pelvis with IV contrast in this hospital was done. It showed: Hypoattenuated mass is seen in the left lower left midline pelvis measuring up to 6.2 cm which is adjacent to the posterior jaimes of the prostate and urinary bladder. Urology was consulted. Per urologist service: no acute urologic intervention indicated. OK to send home with santa. The patient needs to follow up with urology at [facility] due to insurance. So I discharge the patient home. I advised the patient to follow up at [facility] as soon as he can for further workup of his pelvis mass. Activity as tolerated. Diet per home diet. The patient found to have urinary tract infection and was treated with IV antibiotic Rocephin 1 g IV q.day. I am going to continuing antibiotic at home with Levaquin 500 mg p.o. q.day for seven days. The patient also received Flomax 0.4 mg p.o. q.h.s. and Avodart 5 mg p.o. daily. Also Ultram p.r.n. for pain. Physical exam: HEENT: Normocephalic atraumatic pupils equal react to light and accommodation. Extraocular muscles intact, conjunctiva pink, oropharynx moist, no thrush, no exudate. Lymphatic: No lymphadenopathy Cardiovascular exam: S1, S2 was heard. No murmurs, rubs, gallops Lung: Clear on auscultation bilaterally, no wheeze, rale, rhonchi. GI: Abdominal soft, nondistended, nontenderness, positive bowel sounds. Extremity: No crepitus, cyanosis, edema. Pedal pulses present bilateral. Full range of motion. Skin: Normal turgor, no rash. Psych: Alert, oriented x3. Neurology: No focal deficits, cranial nerve II to XII grossly intact. Condition at Discharge: Stable Final Diagnosis/Problems List Pelvic mass Urinary tract infection Obstructive uropathy Abdominal pain COPD stable Osteoarthritis status post knee surgery Discharge Disposition: Home Discharge Instruct/Medications Diet: Regular Activity: No Restrictions, As Tolerated Follow Up/Referral: pcp 1-2 weeks [facility] urology department per schedule Medications: flomax 0.4 mg at night levaquin 500mg daily ultram 50mg q6hPRN for pain. Discharge Statement: "Patient was advised to return to the ER or call 911 if any headaches, dizziness, shortness of breath, chest pain, abdominal pain, bleeding, fevers, or worsening of medical condition. Patient was counseled about treatment plan, medications, possible side effects, patientverbalized understanding. All questions were answered to the best of my ability. This discharge took greater then 30 minutes in planning, reviewing documentation, counseling the patient, and discussing with other team members." ASSESSMENT ASSESSMENT Assessment pelvis mass Date of Service: May 27, 2024 Billing Provider: NIGEL DOUGLAS MD Common Visit Codes: [id number] DISCH DAY >30min NIGEL DOUGLAS MD May 27, 2024 11:56
--- NOTE | 2024-05-27 12:20 | DVH ---
CHEST RADIOGRAPH Indication: COPD Technique: Single frontal view of the chest was obtained Comparison: None FINDINGS: Lines and Tubes: None Lungs: No focal consolidation. Pleura: No effusion. No pneumothorax. Cardiomediastinal contours: Unremarkable Bones: No acute osseous abnormality. IMPRESSION: No acute cardiopulmonary disease.
[2024-05-27 13:00] VITALS: BP 119/75; PULSE 90; RESP 19; TEMP 98.5; O2SAT 95
[2024-05-27 13:09] VITALS: BP 119/75; PULSE 88; RESP 16; TEMP 97.8; O2SAT 96
[2024-05-27] MEDS ORDERED: FINA5TAB4 PO (15:57)
== END 2024-05-27 19:00 | disposition home or self-care (01) | DRG 463 ==
LOC: ER 15:10 → OVERFLOW 21:27 → WEST WING 05-26 02:56
PROVIDERS: ADMIT Nurse Practitioner; ATTEND Internal Medicine
DX: N30.01 Acute cystitis with hematuria (principal); E11.9 Type 2 diabetes mellitus without complications; J43.9 Emphysema, unspecified; J44.89 Other specified chronic obstructive pulmonary disease; Z90.49 Acquired absence of other specified parts of digestive tract; Z88.5 Allergy status to narcotic agent; Z83.3 Family history of diabetes mellitus; Z83.6 Family history of other diseases of the respiratory system; Z82.49 Family history of ischemic heart disease and other diseases of the circulatory system; Z79.899 Other long term (current) drug therapy
CPT/HCPCS: 36415; 71045; 74176; 74177; 80053; 81001; 83605; 84484; 85025; G0378; J2405

== ENCOUNTER 2024-06-17 18:17 | Inpatient (IN) | payer MEDICARE, MEDICAID ==
[~2024-06-17] VITALS: Ht 177.8 cm; Wt 130.5 kg
[~2024-06-17 18:17] MED LIST: FAMO20IN2 IV; FINA5TAB4 PO; LEVO500T91 PO; TAMS-35 PO; TRAM50TA2 PO
[2024-06-17 19:38] LABS: Basophils # (auto) 0 10 ^3/uL (0-0.2); Basophils % (auto) 0.3 % (0.0-2.0); Eosinophils # (auto) 0.2 10 ^3/uL (0-0.8); Eosinophils % (auto) 2.9 % (0.0-7.0); Hematocrit 45.6 % (41.0-53.0); Hemoglobin 15.1 g/dL (13.5-17.5); Lymphocytes # (auto) 2.1 10 ^3/uL (0.4-5.4); Lymphocytes % (auto) 30.2 % (10.0-50.0); Mean Corpuscular Hgb Conc. 33.1 g/dL (32.0-36.0); Mean Corpuscular Volume 90.7 fL (80.0-100.0); Monocytes # (auto) 0.7 10 ^3/uL (0-1.3); Monocytes % (auto) 10.7 % (0.0-12.0); Neutrophils # (auto) 3.9 10 ^3/uL (1.6-8.6); Neutrophils % (auto) 55.9 % (37.0-80.0); Nucleated Red Blood Cells % 0.1 %; Platelet Count (auto) 188 10^3/uL (140-450); Red Blood Cells 5.03 10^6/uL (4.5-5.90)
[2024-06-17 19:49] LABS: Potassium 4.2 mmol/L (3.5-5.1); Sodium 141 mmol/L (136-145)
[2024-06-17 19:50] LABS: Anion Gap 5 (5-15); Carbon Dioxide 26 mmol/L (20-31)
[2024-06-17 19:55] LABS: BUN/Creatinine Ratio 20.7 (10.0-20.0); Blood Urea Nitrogen 19 mg/dL (9-23); Glucose 101 mg/dL (74-106)
[2024-06-17 19:56] LABS: Chloride 110 mmol/L (98-107)
--- NOTE | 2024-06-17 23:18 | DVH ---
CHEST RADIOGRAPH Indication: ams Technique: Single frontal view of the chest was obtained Comparison: XY CHEST PORTABLE on DOS: 05/27/24 FINDINGS: Lines and Tubes: None Lungs: Clear Pleura: No effusion. No pneumothorax. Cardiomediastinal contours: Unremarkable Bones: Unremarkable IMPRESSION: 1. Clear lungs.
--- NOTE | 2024-06-17 23:23 | DVH ---
CT HEAD WITHOUT CONTRAST INDICATION: [facility] EXAM DATE: 06/17/2024 10:51 PM COMPARISON: None RADIATION DOSE: CTDIvol: 58 mGy, DLP: 1131 mGy*cm PROCEDURE: CT scans of the head were obtained from the vertex to the skull base. Sagittal and coronal reconstructions were provided. All CT scans at this medical facility are performed using dose modulation techniques as appropriate t o a performed exam including the following: Automated exposure control was utilized; adjustment of th e MA and/or KV according to patient size; and use of iterative reconstruction technique. FINDINGS: There is sulcal and ventricular prominence. The brainshows normal morphology and colon-whi te matter differentiation, without intracranial hemorrhage, extra-axial fluid collection, mass effect or acute large vessel infarct. The ventricles are normal in size. The basal cisterns are patent. The skull and visible facial bones are intact. Mucosal thickening of the bilateral ethmoid and maxillary sinuses. Mastoid air cells are clear. Status post right suboccipital craniectomy. The soft tissues of the scalp are unremarkable. IMPRESSION: No acute intracranial abnormality.
[2024-06-18] VITALS (8 sets, daily range): BP systolic 117–155; BP diastolic 83–93; PULSE 53–95; RESP 16–20; TEMP 97.6–98.5; O2SAT 95–100
--- NOTE | 2024-06-18 00:14 | ED.PDOC ---
History of Present Illness HPI Comments 69M with COPD, prostate CA, who presents from home with 4 days of worsening ams. Legal Assistant reports that usually patient is A&Ox3 however for the last 4 days patient patient has been very confused and acting erratically. Chief Complaint: ALOC Time Seen by MD: 18:55 Primary Care Provider: [facility] Allergies: Coded Allergies: Codeine (Verified Allergy, Unknown, 05/25/24) Home Meds Active Scripts Tramadol Hcl (Tramadol Hcl) 50 Mg Tab, 50 MG PO Q6HPRN PRN, #30 TAB Prov:NIGEL DOUGLAS MD 05/27/24 Tamsulosin Hcl (Flomax) 0.4 Mg Cap, 1 CAP PO DAILY, #30 CAP 11 Refills Prov:NIGEL DOUGLAS MD 05/27/24 Levofloxacin Hemihydrate (LEVAQUIN 500 MG) 500 Mg Tab, 1 TAB PO DAILY, #7 TAB Prov:NIGEL DOUGLAS MD 05/27/24 Reported Medications Finasteride (Finasteride) 5 Mg Tab, 5 MG PO DAILY for 30 Days, MG 05/27/24 Famotidine In Nacl (Famotidine) 20 Mg/50 M Inj, 20 MG IV BID, INJ 05/26/24 Mode of Arrival: EMS Past Medical History PAST MEDICAL HISTORY: COPD Past Medical History (Other): Prostate Cancer Constitutional: reports: weakness Physical Exam General Appearance: No Apparent Distress HEENT: Normal ENT Inspection, Pharynx Normal, TMs Normal Neck: Full Range of Motion, Non-Tender, Normal, Normal Inspection Respiratory: Chest Non-Tender, Lungs Clear, No Accessory Muscle Use, No Respi ratory Distress, Normal Breath Sounds Cardiovascular: No Edema, No JVD, No Murmur, No Gallop, Normal Peripheral Pulses, Regular Rate/Rhythm Breast Exam: Deferred Gastrointestinal: No Organomegaly, Non Tender, No Pulsatile Mass, Normal Bowel Sounds, Soft Genitalia: Deferred Pelvic: Deferred Rectal: Deferred Extremities: No calf tenderness, Normal capillary refill, Normal inspection, Normal range of motion, Non-tender, No pedal edema Neurologic: Disoriented Cerebellar Function: NOT DONE Reflexes: NOT DONE Skin: Dry, Normal Color, Warm Lymphatic: No Adenopathy Was a procedure done? Was a procedure done?: No Differential Dx Considerations may include: Electrolyte abnormality, infectious etiology, worsening malignancy X-Ray, Labs, Meds, VS Vital Signs Date Time Temp Pulse Resp B/P (MAP) Pulse Ox O2 Delivery O2 Flow Rate FiO2 06/17/24 18:25 97.4 70 20 162/102 (122) 99 Lab Test 06/17/24 20:07 06/17/24 19:11 Range/Units Troponin I High Sensitivity 7 6 </=54 ng/L White Blood Count 7.0 4.4-10.8 10^3/uL Red Blood Count 5.03 4.5-5.90 10^6/uL Hemoglobin 15.1 13.5-17.5 g/dL Hematocrit 45.6 41.0-53.0 % Mean Corpuscular Volume 90.7 80.0-100.0 fL Mean Corpuscular Hemoglobin 30.0 28.0-32.0 pg Mean Corpuscular Hemoglobin Concent 33.1 32.0-36.0 g/dL Red Cell Distribution Width 14.0 11.8-14.3 % Platelet Count 188 140-450 10^3/uL Mean Platelet Volume 6.9 6.9-10.8 fL Neutrophils (%) (Auto) 55.9 37.0-80.0 % Lymphocytes (%) (Auto) 30.2 10.0-50.0 % Monocytes (%) (Auto) 10.7 0.0-12.0 % Eosinophils (%) (Auto) 2.9 0.0-7.0 % Basophils (%) (Auto) 0.3 0.0-2.0 % Neutrophils # (Auto) 3.9 1.6-8.6 10 ^3/uL Lymphocytes # (Auto) 2.1 0.4-5.4 10 ^3/uL Monocytes # (Auto) 0.7 0-1.3 10 ^3/uL Eosinophils # (Auto) 0.2 0-0.8 10 ^3/uL Basophils # (Auto) 0 0-0.2 10 ^3/uL Nucleated Red Blood Cells 0.1 % Sodium Level 141 136-145 mmol/L Potassium Level 4.2 3.5-5.1 mmol/L Chloride Level 110 H 98-107 mmol/L Carbon Dioxide Level 26 20-31 mmol/L Anion Gap 5 5-15 Blood Urea Nitrogen 19 9-23 mg/dL Creatinine 0.92 0.700-1.30 mg/dL Glomerular Filtration Rate Calc 91 >90 mL/min BUN/Creatinine Ratio 20.7 H 10.0-20.0 Serum Glucose 101 74-106 mg/dL Calcium Level 9.0 8.7-10.4 mg/dL Time of 1ST Reevaluation: 00:13 Reevaluation 1ST: Unchanged Patient Education/Counseling: Diagnosis, Treatment Family Education/Counseling: No Family Present Departure 1 Departure Time of Disposition: 00:13 (Patient with a worsening altered mental status for the last several days per [facility] winder. We will check labs urine imaging and admit patient for further workup) Impression: Primary Impression: Metabolic encephalopathy Additional Impression: Generalized weakness Disposition: ADMITTED INPATIENT Admit to: Med Surg Condition: Serious Critical Care Note Critical Care Time?: No Stability Stability form required: No Heart Score Heart Score: Heart Score Response (Comments) Value History N/A 0 EKG N/A 0 Age N/A 0 Risk Factors N/A 0 Troponin N/A 0 Total 0 SANDY FERRARI MD Jun 18, 2024 00:14
[2024-06-18] MEDS ORDERED: DOCUSATE SOD 100 MG CAP PO PRN (00:30)
[2024-06-18] MEDS ORDERED: MAALOX PLUS or MAALOX 30 ML PO PRN (00:30)
--- NOTE | 2024-06-18 00:40 | DVHHP2 ---
History of Present Illness Reason for Visit: Confusion History of Present Illness 72-year-old with a past medical history COPD, reports taking answered comes to the ED with complaints of pain for the last 4 days patient has had change in his mentation and her caretaking patient has been feeling orders feeling confused and acting erratic according to the construction laborer during the evaluation patient did not appear to be in any acute distress labs seem within normal limits CT scan chest x-ray within normal limits however ED recommended the patient be admitted for further evaluation with possible secondary underlying metabolic issue Pulmonary: COPD Review of Systems Constitutional: Yes: Weakness; No: Fever, Chills, Sweats, Malaise, Other Eyes: No: Pain, Vision change, Conjunctivae inflammation, Eyelid inflammation, Other, Redness ENT: No: Ear pain, Ear discharge, Nose pain, Nose discharge, Nose congestion, Mouth pain, Mouth swelling, Throat pain, Throat swelling, Other Respiratory: No: Cough, Dry, Shortness of breath, SOB with excertion, Wheezing, Hemoptysis, Pleuritic Pain, Sputum, Wheezing, Other Cardiovascular: No: Chest Pain, Palpitations, Orthopnea, Paroxysmal Noc. Dyspnea, Edema, Lt Headedness, Other Gastrointestinal: No: Nausea, Vomiting, Abdominal Pain, Diarrhea, Constipation, Melena, Hematochezia, Other Genitourinary: No Dysuria, No Frequency, No Incontinence, No Hematuria, No Retention, No Other Musculoskeletal: No: other, neck pain, shoulder pain, arm pain, back pain, hand pain, leg pain, foot pain Skin: No: Rash, Lesions, Jaundice, Bruising, Other Neurological: Confusion; No: Weakness, Numbness, Incoordination, Change in speech, Seizures, Other Allergies: Coded Allergies: Codeine (Verified Allergy, Unknown, 05/25/24) Medications Current Medications Medications Dose Ordered Sig/Hung Route Start Time Stop Time Status Last Admin Dose Admin Finasteride 5 mg DAILY PO 06/18/24 10:00 UNV Tamsulosin HCl 0.4 mg DAILY PO 06/18/24 10:00 UNV Sodium Chloride 1,000 ml @ 100 mls/hr Q10H IV 06/18/24 00:30 UNV Lorazepam 0.5 mg Q6HP PRN PO 06/18/24 00:30 UNV Al Hydrox/Mg Hydrox/Simethicone 30 ml Q6HP PRN PO 06/18/24 00:30 UNV Docusate Sodium 100 mg BIDPRN PRN PO 06/18/24 00:30 UNV Acetaminophen 650 mg Q6HP PRN PO 06/18/24 00:30 UNV Temazepam 15 mg QHSP PRN PO 06/18/24 00:30 UNV Ondansetron HCl 4 mg Q4HP PRN IV 06/18/24 00:30 UNV Morphine Sulfate 2 mg Q4HPRN PRN IV 06/18/24 00:30 UNV Exam Vital Signs Vital Signs Date Time Temp Pulse Resp B/P (MAP) Pulse Ox O2 Delivery O2 Flow Rate FiO2 06/17/24 18:25 97.4 70 20 162/102 (122) 99 General Appearance: Alert, Oriented X3, Cooperative HEENT: Atraumatic, PERRLA, EOMI Respiratory: Clear to auscultation, Normal air movement Cardiovascular: Regular rate, Normal S1, Normal S2 Abdominal: Normal bowel sounds, Soft, No tenderness Extremities: No clubbing, No cyanosis, No edema Skin: No rashes, No breakdown Neuro: Normal gait, Normal speech Psych/Mental Status: Mood NL Labs/Xrays Labs Test 06/17/24 20:07 06/17/24 19:11 Range/Units Troponin I High Sensitivity 7 </=54 ng/L White Blood Count 7.0 4.4-10.8 10^3/uL Red Blood Count 5.03 4.5-5.90 10^6/uL Hemoglobin 15.1 13.5-17.5 g/dL Hematocrit 45.6 41.0-53.0 % Mean Corpuscular Volume 90.7 80.0-100.0 fL Mean Corpuscular Hemoglobin 30.0 28.0-32.0 pg Mean Corpuscular Hemoglobin Concent 33.1 32.0-36.0 g/dL Red Cell Distribution Width 14.0 11.8-14.3 % Platelet Count 188 140-450 10^3/uL Mean Platelet Volume 6.9 6.9-10.8 fL Neutrophils (%) (Auto) 55.9 37.0-80.0 % Lymphocytes (%) (Auto) 30.2 10.0-50.0 % Monocytes (%) (Auto) 10.7 0.0-12.0 % Eosinophils (%) (Auto) 2.9 0.0-7.0 % Basophils (%) (Auto) 0.3 0.0-2.0 % Neutrophils # (Auto) 3.9 1.6-8.6 10 ^3/uL Lymphocytes # (Auto) 2.1 0.4-5.4 10 ^3/uL Monocytes # (Auto) 0.7 0-1.3 10 ^3/uL Eosinophils # (Auto) 0.2 0-0.8 10 ^3/uL Basophils # (Auto) 0 0-0.2 10 ^3/uL Nucleated Red Blood Cells 0.1 % Sodium Level 141 136-145 mmol/L Potassium Level 4.2 3.5-5.1 mmol/L Chloride Level 110 H 98-107 mmol/L Carbon Dioxide Level 26 20-31 mmol/L Anion Gap 5 5-15 Blood Urea Nitrogen 19 9-23 mg/dL Creatinine 0.92 0.700-1.30 mg/dL Glomerular Filtration Rate Calc 91 >90 mL/min BUN/Creatinine Ratio 20.7 H 10.0-20.0 Serum Glucose 101 74-106 mg/dL Calcium Level 9.0 8.7-10.4 mg/dL Assessment/Plan Assessment/Plan Admit to [facility] Suspected Metabolic encephalopathy unknown source CT head no acute signs of the stroke No acute signs of mass effects or damage History of suboccipital craniotomy UTI possible unconfirmed UA stat ordered UDS stat ordered labs appear within normal limits stated changes over four days All labs and imaging appears normal subacute stroke less likely infection seems less likely but unconfirmed neuro evaluation Plan discussed with: Patient My Orders Orders - DRE ARRIETA MD Procedure Category Date Status Time Urinalysis LAB 06/18/24 Logged 00:20 Drug Screen LAB 06/18/24 Logged 00:20 Straight Cath. ED NURSING 06/18/24 Transmitted * Neurology Consult CONS 06/18/24 Transmitted 00:20 Finasteride Tablet PHA 06/18/24 Logged (Proscar Tablet) 10:00 Tamsulosin PHA 06/18/24 Logged Hydrochloride (Flomax) 10:00 Admit ADMIT 06/18/24 Transmitted 00:20 Code Status CODE 06/18/24 Transmitted 00:20 Vital Signs SARAH 06/18/24 In Process 00:20 Review Orders With SARAH 06/18/24 In Process Adm.Md 00:20 Regular Diet DIET 06/18/24 Transmitted Breakfast Sodium Chloride 0.9% [facility] 06/18/24 Logged 00:30 Lorazepam Tablet [facility] 06/18/24 Logged (Ativan Tablet) 00:30 Alum & Mag [facility] 06/18/24 Logged Hydrox-Simethicone 00:30 Docusate Sodium [facility] 06/18/24 Logged Capsule (Colace 00:30 Acetaminophen Tablet [facility] 06/18/24 Logged (Tylenol Tablet) 00:30 Temazepam (Restoril) [facility] 06/18/24 Logged 00:30 Notify Md Of Changes [facility] 06/18/24 In Process From Base 00:20 Advance Directive [facility] 06/18/24 In Process 00:20 Basic Metabolic Panel LAB 06/19/24 Verified 04:00 Complete Blood Count LAB 06/19/24 Verified 04:00 Patient Condition ORDERS 06/18/24 Transmitted 00:20 Allergies [facility] 06/18/24 In Process 00:20 Ondansetron Hcl [facility] 06/18/24 Logged (Zofran) 00:30 Morphine Sulfate [facility] 06/18/24 Logged Injection 00:30 Notify Md Of Changes [facility] 06/18/24 In Process From Base 00:20 Oxygen By Nasal RT 06/18/24 Transmitted Cannula 00:20 Problem List: (1) Metabolic encephalopathy (2) Generalized weakness (3) Pelvic mass in male (4) UTI (urinary tract infection) Date of Service: Jun 18, 2024 Billing Provider: DRE ARRIETA MD Common Visit Codes: [id number] INP/OBS CARE (HIGH) DRE ARRIETA MD Jun 18, 2024 00:40
[2024-06-18 01:06] LABS: Urine Bacteria FEW /hpf (None Seen); Urine Blood 2+ /uL (Negative); Urine Clarity Turbid (Clear); Urine Color Yellow (Yellow); Urine Mucus FEW (None Seen); Urine Protein, UAD 1+ (Negative); Urine Specific Gravity 1.017 (1.001-1.035); Urine Urobilinogen Normal (Negative); Urine WBC 47 /hpf (0 - 3)
[2024-06-18] MEDS: SODIUM CHLORIDE 0.9% 1,000 ML IV SCH (01:42)
[2024-06-18 02:03] LABS: Amphetamine Screen, Urine Neg (NEGATIVE); Barbiturate Scree,Urine Neg (NEGATIVE); Benzodiazephine Screen, Urine Neg (NEGATIVE); Cannabinoid Screen, Urine Neg (NEGATIVE); Cocaine Screen, Urine Neg (NEGATIVE); Opiate Scree,Urine Neg (NEGATIVE); Phencyclidine Screen, Urine Neg (NEGATIVE)
[2024-06-18] MEDS: MORPHINE SULFATE INJ 2 MG/ml SYRG IV PRN (03:45)
[2024-06-18] MEDS: ONDANSETRON HCL 4 MG/2 ML VIAL IV PRN (03:46)
[2024-06-18] MEDS: FINASTERIDE 5 MG TAB PO SCH (09:40)
[2024-06-18] MEDS: TAMSULOSIN HYDROCHLORIDE 0.4 MG CAP PO SCH (09:40)
[2024-06-18 10:09] LABS: Hepatitis C Antibody Negative (Negative)
[2024-06-18 11:30] LABS: Hepatitis B Surface Antigen Negative (Negative)
--- NOTE | 2024-06-18 14:45 | DVHPN2 ---
Assessment/Plan Assessment/Plan Progress note Subjective 69 M admitted for encephalopathy. In my exam patient was awake alert and oriented, reported feeling sick and weak, unable to get his meds. Previous admission with obstructive uropathy, CT with pelvic mass. discharged with indwelling santa. Objective Physical exam Alert, oriented x3 PERRLA No JVD Clear breath sounds bilaterally S1-S2 regular rate and rhythm no murmur Abdomen distended Moving all four extremities No lower extremity edema Lab WNL Imaging CTH negative CXR clear Assessment and plan Obstructive uropathy Pelvic mass possible prostate origin Metabolic encephalopathy? resolved UTI indwelling santa COPD B not in exacerbation chornic back pain urology consult ceftriaxone, follow ucx biopsy? breathing treatment PRN gabapentin TID Replete electrolytes Diet regular DVT prophylaxis hold Plan discussed with: Patient My Orders Orders - ROSSY CHAPMAN MD Procedure Category Date Status Time * Urology Consult CONS 06/18/24 Transmitted 14:36 Date of Service: Jun 18, 2024 Billing Provider: ROSSY CHAPMAN MD Common Visit Codes: [id number] INP/OBS CARE(HIGH) ROSSY CHAPMAN MD Jun 18, 2024 14:45
[2024-06-18] MEDS: cefTRIAXone 1GM/50ML D5W 50 ML IV ONE (15:08)
[2024-06-18] MEDS: LORazepam 0.5 MG TAB PO PRN (16:18)
--- NOTE | 2024-06-18 20:40 | DVHINCON2 ---
Date of service: Jun 18, 2024 Referring Physician Hospitalist Reason for Consultation Urinary retention History of Present Illness Patient has a 22 F Santa catheter placed by ER nurse in [place], [place] on 05/18/24. He was seen recently by [facility] for prostate biopsy and pelvic mass biopsy. Pathology report is pending. He is here for metabolic derrangement and Santa needs to be changed. The Hospitalist is uncomfortable with nurses changing his catheter and consultation was requested. Past Medical History as per H&P Past Surgical History Pelvic mass biopsy Prostate biopsy Family History: Asthma G8 BROTHER Diabetes mellitus G8 FATHER FH: COPD (chronic obstructive pulmonary disease) G8 MOTHER FH: asthma FH: brain tumor G8 BROTHER FH: congestive heart failure G8 FATHER FH: diabetes mellitus FH: emphysema G8 MOTHER FH: heart attack G8 MOTHER FH: smoking G8 MOTHER Allergies: Coded Allergies: Codeine (Verified Allergy, Unknown, 05/25/24) Home Meds Active Scripts Tramadol Hcl (Tramadol Hcl) 50 Mg Tab, 50 MG PO Q6HPRN PRN, #30 TAB Prov:NIGEL DOUGLAS MD 05/27/24 Tamsulosin Hcl (Flomax) 0.4 Mg Cap, 1 CAP PO DAILY, #30 CAP 11 Refills Prov:NIGEL DOUGLAS MD 05/27/24 Levofloxacin Hemihydrate (LEVAQUIN 500 MG) 500 Mg Tab, 1 TAB PO DAILY, #7 TAB Prov:NIGEL DOUGLAS MD 05/27/24 Reported Medications Finasteride (Finasteride) 5 Mg Tab, 5 MG PO DAILY for 30 Days, MG 05/27/24 Discontinued Reported Medications Famotidine In Nacl (Famotidine) 20 Mg/50 M Inj, 20 MG IV BID, INJ 05/26/24 Current Medications Current Medications Medications (Trade) Dose Ordered Sig/Hung Route PRN Reason Start Time Stop Time Status Last Admin Finasteride (Proscar Tablet) 5 mg DAILY PO 06/18/24 10:00 06/18/24 09:40 Tamsulosin HCl (Flomax) 0.4 mg DAILY PO 06/18/24 10:00 06/18/24 09:40 Sodium Chloride 1,000 ml @ 100 mls/hr Q10H IV 06/18/24 00:30 12/12/24 11:46 Lorazepam (Ativan Tablet) 0.5 mg Q6HP PRN PO ANXIETY 06/18/24 00:30 06/18/24 16:18 Al Hydrox/Mg Hydrox/Simethicone (Maalox Plus) 30 ml Q6HP PRN PO FOR STOMACH DISTRESS 06/18/24 00:30 Docusate Sodium (Colace Capsule) 100 mg BIDPRN PRN PO FOR CONSTIPATION 06/18/24 00:30 Acetaminophen (Tylenol Tablet) 650 mg Q6HP PRN PO PAIN SCALE 1-3 OR TEMP>100.4 06/18/24 00:30 Temazepam (Restoril) 15 mg QHSP PRN PO FOR INSOMNIA 06/18/24 00:30 Ondansetron HCl (Zofran) 4 mg Q4HP PRN IV NAUSEA / VOMITING 06/18/24 00:30 06/18/24 03:46 Morphine Sulfate 2 mg Q4HPRN PRN IV SEVERE PAIN (7-10 PAIN SCALE) 06/18/24 00:30 06/18/24 03:45 Ceftriaxone Sodium 50 ml @ 100 mls/hr DAILY@09 IV 06/19/24 09:00 Gabapentin (Neurontin Capsule) 300 mg TID PO 06/18/24 22:00 Review of Systems Santa catheter in place for urinary retention Vital Signs Vital Signs Date Time Temp Pulse Resp B/P (MAP) Pulse Ox O2 Delivery O2 Flow Rate FiO2 06/18/24 16:59 98.5 89 20 143/85 (104) 96 98.5 06/18/24 08:00 Room Air* 0 21 Physical Exam : [address] Urine clear Labs/Diagnostic Data Labs Test 06/18/24 07:12 06/18/24 00:45 06/17/24 20:07 06/17/24 19:11 Range/Units Hepatitis B Surface Antigen Negative Negative Hepatitis C Antibody Negative Negative Urine Color Yellow Yellow Urine Clarity Turbid H Clear Urine pH 6.0 5.0-9.0 Urine Specific [place] 1.017 1.001-1.035 Urine Protein 1+ H Negative Urine Ketones Negative Negative Urine Blood 2+ H Negative /uL Urine Nitrite 2+ H Negative Urine Bilirubin Negative Negative Urine Urobilinogen Normal Negative mg/dL Urine Leukocyte Esterase 3+ Negative /uL Urine RBC 68 0 - 3 /hpf Urine WBC 47 0 - 3 /hpf Urine Squamous Epithelial Cells None seen <5 /hpf Urine Bacteria Few H None Seen /hpf Urine Mucus Few None Seen Urine Glucose Normal Normal mg/dL Urine Opiates Screen Neg NEGATIVE Urine Fentanyl Screen Neg NEGATIVE Urine Barbiturates Screen Neg NEGATIVE Urine Phencyclidine Screen Neg NEGATIVE Urine Amphetamines Screen Neg NEGATIVE Urine Benzodiazepines Screen Neg NEGATIVE Urine Cocaine Screen Neg NEGATIVE Urine Cannabinoids Screen Neg NEGATIVE Troponin I High Sensitivity 7 </=54 ng/L White Blood Count 7.0 4.4-10.8 10^3/uL Red Blood Count 5.03 4.5-5.90 10^6/uL Hemoglobin 15.1 13.5-17.5 g/dL Hematocrit 45.6 41.0-53.0 % Mean Corpuscular Volume 90.7 80.0-100.0 fL Mean Corpuscular Hemoglobin 30.0 28.0-32.0 pg Mean Corpuscular Hemoglobin Concent 33.1 32.0-36.0 g/dL Red Cell Distribution Width 14.0 11.8-14.3 % Platelet Count 188 140-450 10^3/uL Mean Platelet Volume 6.9 6.9-10.8 fL Neutrophils (%) (Auto) 55.9 37.0-80.0 % Lymphocytes (%) (Auto) 30.2 10.0-50.0 % Monocytes (%) (Auto) 10.7 0.0-12.0 % Eosinophils (%) (Auto) 2.9 0.0-7.0 % Basophils (%) (Auto) 0.3 0.0-2.0 % Neutrophils # (Auto) 3.9 1.6-8.6 10 ^3/uL Lymphocytes # (Auto) 2.1 0.4-5.4 10 ^3/uL Monocytes # (Auto) 0.7 0-1.3 10 ^3/uL Eosinophils # (Auto) 0.2 0-0.8 10 ^3/uL Basophils # (Auto) 0 0-0.2 10 ^3/uL Nucleated Red Blood Cells 0.1 % Sodium Level 141 136-145 mmol/L Potassium Level 4.2 3.5-5.1 mmol/L Chloride Level 110 H 98-107 mmol/L Carbon Dioxide Level 26 20-31 mmol/L Anion Gap 5 5-15 Blood Urea Nitrogen 19 9-23 mg/dL Creatinine 0.92 0.700-1.30 mg/dL Glomerular Filtration Rate Calc 91 >90 mL/min BUN/Creatinine Ratio 20.7 H 10.0-20.0 Serum Glucose 101 74-106 mg/dL Calcium Level 9.0 8.7-10.4 mg/dL PATIENT: VENITA SCOTTCCT: [id number] UNIT: [id number] : 1955 LOC: OVERFLOW ROOM / BED: 1023-ER / A AGE / SEX: 69 / M ADM STATUS: ADM IN SERVICE 26 ORDERING PHYSICIAN: CIRO TORRESP PROCEDURE(s): ABPLIV - CT AB PEL WITH IV CON ONLY REASON: pelvic mass ORDER NUMBER(s): [id number], ACCESSION NUMBER(s): [id number] Exam: CT CT AB PEL WITH IV CON ONLY History: pelvic mass Comparison Study: CT CT AB PEL WO CON-NO ORAL OR IV on DOS: 05/25/24 Technique: Multidetector spiral CT of the abdomen was performed from lung bases to pubic symphysis. Imaging was performed without IV contrast. Axial, coronal and sagittal multiplanar reformats were obtained from the axial data set by the technologist. Radiation Dose : 1. Abdomen/Pelvis: CTDIvol 23 mGy, DLP 2005.58 mGy*cm. Findings: Evaluation of solid organs is limited due to lack of intravenous contrast use. Lung Bases: No acute or significant lung base finding. Normal heart size. No pleural or pericardial effusion. Liver: The liver is normal in size. No focal lesions. Gallbladder and Biliary Tree: Gallbladder is surgically absent. Spleen: Unremarkable Pancreas: The pancreas is grossly normal in appearance. Adrenal Glands: Unremarkable Kidneys: Kidneys are grossly normal without calculi or hydronephrosis. Bladder: Grossly unremarkable for degree of distention. Bowel: Postsurgical changes are seen in the stomach. Small bowel and colon are normal in caliber and distribution. The appendix is not visualized; however, no secondary findings of acute appendicitis identified. Ascites: Absent Lymphadenopathy: No mesenteric, retroperitoneal or periportal lymphadenopathy. Abdominal Wall and Mesentery: Unremarkable. Vasculature: The visualized abdominal aorta is normal in size and caliber. Evaluation of abdominal and pelvic vessels is limited due to lack of intravenous contrast. Pelvic Organs: Urinary bladder is collapsed around a Santa catheter. Hypoattenuated pelvic mass is seen in the lower midline pelvis measuring 6.2 x 4.7 cm. Mass appears to abut the posterior wall of the prostate as well as the posterior wall of the urinary bladder. Musculoskeletal: No aggressive focal bony lesions, acute fractures or dislocation. Lumbar fixation hardware seen at L4-L5. IMPRESSION: 1. Hypoattenuated mass is seen in the left lower left midline pelvis measuring up to 6.2 cm which is adjacent to the posterior jaimes of the prostate and urinary bladder. 2. Radiation optimization: All CT scans at this facility use at least one of these dose optimization techniques: automated exposure control mA and/or kV adjustment per patient size (includes targeted exams where dose is matched to clinical indication) or iterative reconstruction. ATED BY: AUBREY ESCOBEDO MD DICTATED DATE/TIME: 05/25/242235 SIGNED BY: AUBREY ESCOBEDO MD SIGNED DATE/TIME: 05/25/242235 CC: Assessment Urinary retention BPH Pelvic mass "abutting" the posterior prostate" Plan/Recommendation Santa may be exchanged monthly as needed. Please exchange the Santa to gravity and a new leg bag. If there is any difficulty, then please call me. Discharge when stable with santa to leg bag Patient to follow up with [facility] for pathology results. Signing off. Plan discussed with: Patient, Other REECE ODOM MD Jun 18, 2024 20:40
[2024-06-18] MEDS: GABAPENTIN 300 MG CAP PO SCH (21:48)
[2024-06-18] MEDS: TEMAZEPAM 15 MG CAP PO PRN (21:57)
[2024-06-19] VITALS (8 sets, daily range): BP systolic 106–117; BP diastolic 58–72; PULSE 58–86; RESP 15–20; TEMP 97.4–98.2; O2SAT 93–100
[2024-06-19] MEDS: ACETAMINOPHEN 325 MG TAB PO PRN (01:36)
[2024-06-19 06:17] LABS: Basophils # (auto) 0 10 ^3/uL (0-0.2); Basophils % (auto) 0.4 % (0.0-2.0); Eosinophils # (auto) 0.2 10 ^3/uL (0-0.8); Eosinophils % (auto) 3.1 % (0.0-7.0); Hematocrit 43.9 % (41.0-53.0); Hemoglobin 14.7 g/dL (13.5-17.5); Lymphocytes # (auto) 2.6 10 ^3/uL (0.4-5.4); Lymphocytes % (auto) 39.2 % (10.0-50.0); Mean Corpuscular Hgb Conc. 33.5 g/dL (32.0-36.0); Mean Corpuscular Volume 89.5 fL (80.0-100.0); Monocytes # (auto) 0.6 10 ^3/uL (0-1.3); Monocytes % (auto) 8.7 % (0.0-12.0); Neutrophils # (auto) 3.3 10 ^3/uL (1.6-8.6); Neutrophils % (auto) 48.6 % (37.0-80.0); Nucleated Red Blood Cells % 0.3 %; Platelet Count (auto) 180 10^3/uL (140-450); Red Cell Distribution Width 13.5 % (11.8-14.3); White Blood Cell 6.7 10^3/uL (4.4-10.8)
[2024-06-19 06:33] LABS: Alanine Aminotransferase 23 U/L (7-40); Albumin 3.5 g/dL (3.2-4.8); Anion Gap 7 (5-15); Aspartate Aminotransferase 17 U/L (13-40); BUN/Creatinine Ratio 14.1 (10.0-20.0); Blood Urea Nitrogen 12 mg/dL (9-23); Calcium 9.3 mg/dL (8.7-10.4); Carbon Dioxide 27 mmol/L (20-31); Chloride 105 mmol/L (98-107); Glucose 89 mg/dL (74-106); Magnesium 2.1 mg/dL (1.6-2.6); Sodium 139 mmol/L (136-145)
[2024-06-19 06:34] LABS: Phosphorus 4.1 mg/dL (2.4-5.1); Total Protein 6.4 g/dL (5.7-8.2)
[2024-06-19 06:35] LABS: Alkaline Phosphatase 280 U/L (46-116)
[2024-06-19] MEDS: cefTRIAXone 1GM/50ML D5W 50 ML IV SCH (09:30)
--- NOTE | 2024-06-19 17:01 | DVHPN2 ---
Assessment/Plan Assessment/Plan Progress note Subjective 69 M admitted for encephalopathy. In my exam patient was awake alert and oriented, reported feeling sick and weak, unable to get his meds. Previous admission with obstructive uropathy, CT with pelvic mass. discharged with indwelling santa. patient seen by me today during rounds improving, seen by uro, had prostate bx in [place] exchanged. patient previously had issue with outpatient meds and follow up due to insurance. pending ucx Objective Physical exam Alert, oriented x3 PERRLA No JVD Clear breath sounds bilaterally S1-S2 regular rate and rhythm no murmur Abdomen distended Moving all four extremities No lower extremity edema Lab WNL Imaging CTH negative CXR clear Assessment and plan Obstructive uropathy Pelvic mass possible prostate origin Metabolic encephalopathy? resolved UTI indwelling santa COPD B not in exacerbation chornic back pain urology consult appreciated santa exchanged ceftriaxone, follow ucx biopsy done outside breathing treatment PRN gabapentin TID Replete electrolytes Diet regular DVT prophylaxis lovenox Plan discussed with: Patient Date of Service: Jun 19, 2024 Billing Provider: ROSSY CHAPMAN MD Common Visit Codes: [id number] INP/OBS CARE(HIGH) ROSSY CHAPMNA MD Jun 19, 2024 17:00
[2024-06-20] VITALS (7 sets, daily range): BP systolic 102–129; BP diastolic 64–86; PULSE 63–95; RESP 16–18; TEMP 97.5–98.8; O2SAT 95–96
[2024-06-20 08:06] LABS: PSA Free 13.4 ng/mL
[2024-06-20] MEDS: ENOXAPARIN SOD 40 MG/0.4 ML SYRINGE SC SCH (09:40)
--- NOTE | 2024-06-20 14:07 | DVHPN2 ---
Assessment/Plan Assessment/Plan Progress note Subjective 69 M admitted for encephalopathy. In my exam patient was awake alert and oriented, reported feeling sick and weak, unable to get his meds. Previous admission with obstructive uropathy, CT with pelvic mass. discharged with indwelling santa. patient seen by me today during rounds patient was not able to get meds previously, pending SS consult. Objective Physical exam Alert, oriented x3 PERRLA No JVD Clear breath sounds bilaterally S1-S2 regular rate and rhythm no murmur Abdomen distended Moving all four extremities No lower extremity edema Lab WNL Imaging CTH negative CXR clear Assessment and plan Obstructive uropathy Pelvic mass possible prostate origin Metabolic encephalopathy? resolved UTI indwelling santa COPD B not in exacerbation chornic back pain urology consult appreciated santa exchanged ceftriaxone, follow ucx biopsy done outside breathing treatment PRN gabapentin TID Replete electrolytes Diet regular DVT prophylaxis lovenox Plan discussed with: Patient My Orders Orders - ROSSY CHAPMAN MD Procedure Category Date Status Time Enoxaparin Sodium PHA 06/20/24 In Process (Lovenox) 10:00 Date of Service: Jun 20, 2024 Billing Provider: ROSSY CHAPMAN MD Common Visit Codes: [id number] INP/OBS CARE(MOD) ROSSY CHAPMAN MD Jun 20, 2024 14:07
[2024-06-21] VITALS (7 sets, daily range): BP systolic 106–130; BP diastolic 65–87; PULSE 70–87; RESP 18–20; TEMP 97.8–98.8; O2SAT 92–99
--- NOTE | 2024-06-21 15:30 | DVHPN2 ---
Assessment/Plan Assessment/Plan Progress note Subjective 69 M admitted for encephalopathy. In my exam patient was awake alert and oriented, reported feeling sick and weak, unable to get his meds. Previous admission with obstructive uropathy, CT with pelvic mass. discharged with indwelling santa. patient seen by me today during rounds per [facility] [employer] staff will assist tomorrow in getting services. pending cult sens. Objective Physical exam Alert, oriented x3 PERRLA No JVD Clear breath sounds bilaterally S1-S2 regular rate and rhythm no murmur Abdomen distended Moving all four extremities No lower extremity edema Lab [facility] CTH negative CXR clear Assessment and plan Obstructive uropathy Pelvic mass possible prostate origin Metabolic encephalopathy? resolved UTI indwelling santa COPD B not in exacerbation chornic back pain urology consult appreciated santa exchanged ceftriaxone, follow ucx biopsy done outside breathing treatment PRN gabapentin TID Replete electrolytes Diet regular DVT prophylaxis lovenox Plan discussed with: Patient Date of Service: Jun 21, 2024 Billing Provider: ROSSY CHAPMAN MD Common Visit Codes: [id number] INP/OBS CARE(HIGH) ROSSY CHAPMAN MD Jun 21, 2024 15:30
[2024-06-22 01:00] VITALS: BP 104/66; PULSE 70; RESP 16; TEMP 98.1; O2SAT 94
[2024-06-22 05:00] VITALS: BP 107/76; PULSE 71; RESP 18; TEMP 97.4; O2SAT 94
[2024-06-22 09:08] VITALS: BP 103/68; PULSE 63; RESP 16; TEMP 97.5; O2SAT 92
[2024-06-22 13:30] VITALS: BP 108/66; PULSE 63; RESP 18; TEMP 97.9; O2SAT 94
[2024-06-22 17:21] VITALS: BP 97/57; PULSE 78; RESP 17; TEMP 97.6; O2SAT 94
[2024-06-22 21:00] VITALS: BP 106/65; PULSE 81; RESP 13; TEMP 98.1; O2SAT 95
--- NOTE | 2024-06-22 21:26 | DVHPN2 ---
Assessment/Plan Assessment/Plan Progress note Subjective 69 M admitted for encephalopathy. In my exam patient was awake alert and oriented, reported feeling sick and weak, unable to get his meds. Previous admission with obstructive uropathy, CT with pelvic mass. discharged with indwelling santa. patient seen by me today during rounds migraine with aura, patient was taking morphine prior, will change to toradol and PRN ativan, concern for analgesia induced headache. PSA lower than prior per patient. discharge pending patient able to get medication or complete iv abx inpatient Objective Physical exam Alert, oriented x3 PERRLA No JVD Clear breath sounds bilaterally S1-S2 regular rate and rhythm no murmur Abdomen distended Moving all four extremities No lower extremity edema Lab [facility] CTH negative CXR clear Assessment and plan Obstructive uropathy Pelvic mass possible prostate origin Metabolic encephalopathy? resolved UTI indwelling santa COPD B not in exacerbation chornic back pain urology consult appreciated santa exchanged ceftriaxone, follow ucx biopsy done outside breathing treatment PRN gabapentin TID increase dose dc morphine add toradol and PRN ativan Replete electrolytes Diet regular DVT prophylaxis lovenox Plan discussed with: Patient My Orders Orders - ROSSY CHAPMAN MD Procedure Category Date Status Time Ketorolac Injection PHA 06/22/24 In Process (Toradol Injection) 16:30 Linezolid Tablet PHA 06/22/24 In Process (Zyvox Tablet) 22:00 Date of Service: Jun 22, 2024 Billing Provider: ROSSY CHAPMAN MD Common Visit Codes: [id number] INP/OBS CARE(HIGH) ROSSY CHAPMAN MD Jun 22, 2024 21:26
[2024-06-22] MEDS: GABAPENTIN 300 MG CAP PO SCH (22:16)
[2024-06-22] MEDS: LINEZOLID 600MG TABLET PO SCH (22:16)
[2024-06-23] VITALS (7 sets, daily range): BP systolic 99–121; BP diastolic 52–83; PULSE 54–76; RESP 13–20; TEMP 97.7–98.4; O2SAT 93–100
[2024-06-23 05:58] LABS: Basophils # (auto) 0 10 ^3/uL (0-0.2); Basophils % (auto) 0.6 % (0.0-2.0); Eosinophils # (auto) 0.4 10 ^3/uL (0-0.8); Eosinophils % (auto) 4.7 % (0.0-7.0); Hematocrit 42.3 % (41.0-53.0); Hemoglobin 14.4 g/dL (13.5-17.5); Lymphocytes # (auto) 3.1 10 ^3/uL (0.4-5.4); Lymphocytes % (auto) 41.6 % (10.0-50.0); Mean Corpuscular Hemoglobin 30.3 pg (28.0-32.0); Mean Corpuscular Volume 89.3 fL (80.0-100.0); Monocytes # (auto) 0.6 10 ^3/uL (0-1.3); Monocytes % (auto) 8.3 % (0.0-12.0); Neutrophils # (auto) 3.4 10 ^3/uL (1.6-8.6); Neutrophils % (auto) 44.8 % (37.0-80.0); Nucleated Red Blood Cells % 0.1 %; Platelet Count (auto) 178 10^3/uL (140-450); Red Blood Cells 4.73 10^6/uL (4.5-5.90); Red Cell Distribution Width 13.8 % (11.8-14.3); White Blood Cell 7.5 10^3/uL (4.4-10.8)
[2024-06-23 06:09] LABS: Anion Gap 5 (5-15); Carbon Dioxide 28 mmol/L (20-31); Chloride 107 mmol/L (98-107); Potassium 4.4 mmol/L (3.5-5.1); Sodium 140 mmol/L (136-145)
[2024-06-23 06:11] LABS: Calcium 8.9 mg/dL (8.7-10.4)
[2024-06-23 06:15] LABS: BUN/Creatinine Ratio 18.6 (10.0-20.0); Blood Urea Nitrogen 19 mg/dL (9-23); Glucose 83 mg/dL (74-106)
--- NOTE | 2024-06-23 17:40 | DVHPN2 ---
Assessment/Plan Assessment/Plan Progress note Subjective 69 M admitted for encephalopathy. In my exam patient was awake alert and oriented, reported feeling sick and weak, unable to get his meds. Previous admission with obstructive uropathy, CT with pelvic mass. discharged with indwelling santa. patient seen by me today during rounds switched abx to bactrim. PSA lower than prior per patient. discharge pending patient able to get medication or complete abx inpatient Objective Physical exam Alert, oriented x3 PERRLA No JVD Clear breath sounds bilaterally S1-S2 regular rate and rhythm no murmur Abdomen distended Moving all four extremities No lower extremity edema Lab [facility] CTH negative CXR clear Assessment and plan Obstructive uropathy Pelvic mass possible prostate origin Metabolic encephalopathy? resolved UTI indwelling santa COPD B not in exacerbation chornic back pain urology consult appreciated santa exchanged bactrim DS q12 biopsy done outside breathing treatment PRN gabapentin TID increase dose dc morphine add toradol and PRN ativan Replete electrolytes Diet regular DVT prophylaxis lovenox Plan discussed with: Patient My Orders Orders - ROSSY CHAPMAN MD Procedure Category Date Status Time Gabapentin Capsule PHA 06/22/24 In Process (Neurontin Capsule) 22:00 Date of Service: Jun 23, 2024 Billing Provider: ROSSY CHAPMAN MD Common Visit Codes: [id number] INP/OBS CARE(MOD) ROSSY CHAPMAN MD Jun 23, 2024 17:40
[2024-06-23] MEDS ORDERED: BACDST PO (17:41)
[2024-06-23] MEDS ORDERED: TRAM-626 PO (17:41)
[2024-06-23] MEDS ORDERED: GABA-1250 PO (17:41)
[2024-06-23] MEDS: SULFAMETHOX W/TRIMETH(800/160MG) DS TAB PO SCH (21:17)
[2024-06-23] MEDS: KETOROLAC TROMETH 30 MG/ML 1ML VIAL IV PRN (21:19)
[2024-06-24] VITALS (8 sets, daily range): BP systolic 103–149; BP diastolic 65–91; PULSE 58–78; RESP 17–19; TEMP 97.3–98.2; O2SAT 93–97
[2024-06-24] MEDS: clonazePAM 0.5 MG TAB PO PRN (10:39)
[2024-06-24] MEDS ORDERED: TRAM-626 PO (15:18)
[2024-06-24] MEDS ORDERED: BACDST PO (15:18)
[2024-06-24] MEDS ORDERED: TAMS-35 PO (15:18)
[2024-06-24] MEDS ORDERED: FINA5TAB4 PO (15:18)
[2024-06-24] MEDS ORDERED: GABA300T4 PO (15:18)
--- NOTE | 2024-06-24 15:21 | DVHPN2 ---
Assessment/Plan Assessment/Plan Progress note Subjective 69 M admitted for encephalopathy. In my exam patient was awake alert and oriented, reported feeling sick and weak, unable to get his meds. Previous admission with obstructive uropathy, CT with pelvic mass. discharged with indwelling santa. patient seen by me today during rounds complained of tinitus, tympanic membrane on L ears were dull, already on abx. slight vertigo, doubt central. pending meds and follow up with insurance issue Objective Physical exam Alert, oriented x3 PERRLA No JVD Clear breath sounds bilaterally S1-S2 regular rate and rhythm no murmur Abdomen distended Moving all four extremities No lower extremity edema Lab [facility] CTH negative CXR clear Assessment and plan Obstructive uropathy Pelvic mass possible prostate origin Metabolic encephalopathy? resolved UTI indwelling santa COPD B not in exacerbation chornic back pain urology consult appreciated santa exchanged bactrim DS q12 biopsy done outside breathing treatment PRN gabapentin TID increase dose dc morphine add toradol and klonazepam Replete electrolytes Diet regular DVT prophylaxis lovenox Plan discussed with: Patient My Orders Orders - ROSSY CHAPMAN MD Procedure Category Date Status Time Sulfamethoxazole PHA 06/23/24 In Process W/Trimeth Tab (Bactrim 22:00 Clonazepam Tablet PHA 06/24/24 In Process (Klonopin Tablet) 22:00 Discharge DISCHARGE 06/24/24 Transmitted 15:15 Date of Service: Jun 24, 2024 Billing Provider: ROSSY CHAPMAN MD Common Visit Codes: [id number] INP/OBS CARE(HIGH) ROSSY CHAPMAN MD Jun 24, 2024 15:21
[2024-06-24] MEDS: clonazePAM 0.5 MG TAB PO SCH (22:16)
[2024-06-25 01:00] VITALS: BP 106/69; PULSE 66; RESP 18; TEMP 97.1; O2SAT 91
[2024-06-25 05:00] VITALS: BP 103/66; PULSE 72; RESP 18; TEMP 97.6; O2SAT 93
[2024-06-25 07:17] LABS: Chloride 107 mmol/L (98-107); Potassium 4.3 mmol/L (3.5-5.1); Sodium 139 mmol/L (136-145)
[2024-06-25 07:18] LABS: Anion Gap 3 (5-15); Carbon Dioxide 29 mmol/L (20-31)
[2024-06-25 07:19] LABS: Calcium 9.1 mg/dL (8.7-10.4)
[2024-06-25 07:24] LABS: BUN/Creatinine Ratio 14.4 (10.0-20.0); Blood Urea Nitrogen 15 mg/dL (9-23); Glucose 89 mg/dL (74-106)
[2024-06-25 08:00] VITALS: PULSE 60; RESP 19; O2SAT 95
[2024-06-25 08:54] VITALS: BP 106/69; PULSE 60; RESP 17; TEMP 97.9; O2SAT 92
--- NOTE | 2024-06-25 12:53 | DVHDS2 ---
Discharge Summary Date of Admission Jun 18, 2024 at 00:33 Date of Discharge: Jun 24, 2024 Labs/Diagnostic Data: Laboratory Results Test 06/25/24 06:01 06/23/24 04:56 06/19/24 05:15 06/18/24 20:57 Sodium Level 139 mmol/L (136-145) Potassium Level 4.3 mmol/L (3.5-5.1) Chloride Level 107 mmol/L (98-107) Carbon Dioxide Level 29 mmol/L (20-31) Anion Gap 3 (5-15) Blood Urea Nitrogen 15 mg/dL (9-23) Creatinine 1.04 mg/dL (0.700-1.30) Glomerular Filtration Rate Calc 79 mL/min (>90) BUN/Creatinine Ratio 14.4 (10.0-20.0) Serum Glucose 89 mg/dL (74-106) Calcium Level 9.1 mg/dL (8.7-10.4) White Blood Count 7.5 10^3/uL (4.4-10.8) Red Blood Count 4.73 10^6/uL (4.5-5.90) Hemoglobin 14.4 g/dL (13.5-17.5) Hematocrit 42.3 % (41.0-53.0) Mean Corpuscular Volume 89.3 fL (80.0-100.0) Mean Corpuscular Hemoglobin 30.3 pg (28.0-32.0) Mean Corpuscular Hemoglobin Concent 34.0 g/dL (32.0-36.0) Red Cell Distribution Width 13.8 % (11.8-14.3) Platelet Count 178 10^3/uL (140-450) Mean Platelet Volume 6.9 fL (6.9-10.8) Neutrophils (%) (Auto) 44.8 % (37.0-80.0) Lymphocytes (%) (Auto) 41.6 % (10.0-50.0) Monocytes (%) (Auto) 8.3 % (0.0-12.0) Eosinophils (%) (Auto) 4.7 % (0.0-7.0) Basophils (%) (Auto) 0.6 % (0.0-2.0) Neutrophils # (Auto) 3.4 10 ^3/uL (1.6-8.6) Lymphocytes # (Auto) 3.1 10 ^3/uL (0.4-5.4) Monocytes # (Auto) 0.6 10 ^3/uL (0-1.3) Eosinophils # (Auto) 0.4 10 ^3/uL (0-0.8) Basophils # (Auto) 0 10 ^3/uL (0-0.2) Nucleated Red Blood Cells 0.1 % Lactic Acid Level 1.1 mmol/L (0.4-2.0) Phosphorus Level 4.1 mg/dL (2.4-5.1) Magnesium Level 2.1 mg/dL (1.6-2.6) Total Bilirubin 1.0 mg/dL (0.2-1.0) Aspartate Amino Transferase (AST) 17 U/L (13-40) Alanine Aminotransferase (ALT) 23 U/L (7-40) Alkaline Phosphatase 280 U/L (46-116) Total Protein 6.4 g/dL (5.7-8.2) Albumin 3.5 g/dL (3.2-4.8) Free Prostate Specific Antigen 13.40 ng/mL (N/A) Percent Free Prostate Specific Ag 7.9 % (.) Prostate Specific Antigen Total 170.0 ng/mL (0.0-4.0) Test 06/18/24 07:12 06/18/24 00:45 06/17/24 20:07 Hepatitis B Surface Antigen Negative (Negative) Hepatitis C Antibody Negative (Negative) Urine Color Yellow (Yellow) Urine Clarity Turbid (Clear) Urine pH 6.0 (5.0-9.0) Urine Specific [place] 1.017 (1.001-1.035) Urine Protein 1+ (Negative) Urine Ketones Negative (Negative) Urine Blood 2+ /uL (Negative) Urine Nitrite 2+ (Negative) Urine Bilirubin Negative (Negative) Urine Urobilinogen Normal mg/dL (Negative) Urine Leukocyte Esterase 3+ /uL (Negative) Urine RBC 68 /hpf (0 - 3) Urine WBC 47 /hpf (0 - 3) Urine Squamous Epithelial Cells None seen /hpf (<5) Urine Bacteria Few /hpf (None Seen) Urine Mucus Few (None Seen) Urine Glucose Normal mg/dL (Normal) Urine Opiates Screen Neg (NEGATIVE) Urine Fentanyl Screen Neg (NEGATIVE) Urine Barbiturates Screen Neg (NEGATIVE) Urine Phencyclidine Screen Neg (NEGATIVE) Urine Amphetamines Screen Neg (NEGATIVE) Urine Benzodiazepines Screen Neg (NEGATIVE) Urine Cocaine Screen Neg (NEGATIVE) Urine Cannabinoids Screen Neg (NEGATIVE) Troponin I High Sensitivity 7 ng/L (</=54) Other Laboratory Tests 06/25/24 06:01 06/23/24 04:56 Brief Hx & Hospital Course: 69 M admitted for encephalopathy. In my exam patient was awake alert and oriented, reported feeling sick and weak, unable to get his meds. Previous admission with obstructive uropathy, CT with pelvic mass. discharged with indwelling santa. seen by urology, to follow up at [facility] for bx result. s/p abx, discharge with PO abx, medication sent to bedside. Patient had prior issue with insurance for follow up which has been resolved Condition at Discharge: Good Final Diagnosis/Problems List UTI otitis media left chronic pain insurance issue pelvic / prostate mass with retenetion Discharge Disposition: Home Discharge Instruct/Medications Diet: Regular Activity: No Restrictions, As Tolerated Medications: bactrim flomax gabapentin finasteride tramadol 33 Discharge Statement: "Patient was advised to return to the ER or call 911 if any headaches, dizziness, shortness of breath, chest pain, abdominal pain, bleeding, fevers, or worsening of medical condition. Patient was counseled about treatment plan, medications, possible side effects, patientverbalized understanding. All questions were answered to the best of my ability. This discharge took greater then 30 minutes in planning, reviewing documentation, counseling the patient, and discussing with other team members." ASSESSMENT ASSESSMENT Assessment Obstructive uropathy Pelvic mass possible prostate origin Metabolic encephalopathy? resolved UTI indwelling santa POA COPD B not in exacerbation chornic back pain chronic otitis media Date of Service: Jun 25, 2024 Billing Provider: ROSSY CHAPMAN MD Common Visit Codes: [id number] DISCH DAY >30min ROSSY CHAPMAN MD Jun 25, 2024 12:53
[2024-06-25 13:00] VITALS: BP 114/68; PULSE 68; RESP 16; TEMP 97.3; O2SAT 93
[2024-06-25 14:19] VITALS: BP 114/56; PULSE 68; RESP 16; TEMP 97.3; O2SAT 93
== END 2024-06-25 15:30 | disposition home or self-care (01) | DRG 698 ==
LOC: EDBD 18:17 → EDUNIT# 18:17 → ER 18:17 → OVERFLOW 06-18 00:33 → WEST WING 06-18 00:33
PROVIDERS: ADMIT Hospitalist; ATTEND Student in an Organized Health Care Education/Training Program
DX: T83.518A Infection and inflammatory reaction due to other urinary catheter, initial encounter (principal); G93.41 Metabolic encephalopathy; N30.00 Acute cystitis without hematuria; J44.9 Chronic obstructive pulmonary disease, unspecified; N40.0 Benign prostatic hyperplasia without lower urinary tract symptoms; G89.29 Other chronic pain; H66.92 Otitis media, unspecified, left ear; N13.9 Obstructive and reflux uropathy, unspecified; Z82.49 Family history of ischemic heart disease and other diseases of the circulatory system; Z82.5 Family history of asthma and other chronic lower respiratory diseases; Z83.3 Family history of diabetes mellitus; Z85.46 Personal history of malignant neoplasm of prostate; Z88.5 Allergy status to narcotic agent; Z79.899 Other long term (current) drug therapy; Y84.8 Other medical procedures as the cause of abnormal reaction of the patient, or of later complication, without mention of misadventure at the time of the procedure; Y92.89 Other specified places as the place of occurrence of the external cause
CPT/HCPCS: 36415; 70450; 71045; 80048; 80053; 80307; 81001; 83605; 83735; 84100; 84154; 84484; 85025; 86803; 87081; 87086; 87088; 87186; 87340; G0378; J1885; J2405